=== PATIENT | male | born 1975 | race Caucasian/White ===

== ENCOUNTER 2019-04-02 10:03 | Emergency (ER) | payer OTHER, SELFPAY ==
[2019-04-02 10:28] VITALS: BP 125/64; PULSE 68; RESP 20; TEMP 37.2; O2SAT 100
--- NOTE | 2019-04-02 10:46 | ED.GENADULT ---
HPI - General Adult General Chief complaint: Upper Respiratory Infection Stated complaint: SORE THROAT/DRAINAGE Time Seen by Provider: 04/02/19 10:46 Source: patient and RN notes reviewed Mode of arrival: ambulatory Limitations: no limitations History of Present Illness HPI narrative: 43-year-old male presents with complaints of upper respiratory symptoms and sore throat for 1 day. Allergra and Mucinex without relief. History of Sinusitis. Intermittent dry cough. No chest congestion. No high fevers, drooling, neck or throat swelling. Pain is bilateral. Hurts to swallow. No rhinorrhea. Nasal congestion. No voice change. No nausea, vomiting, or abdominal pain. Tolerating liquids well. Denies chills, dyspnea, difficulty swallowing, jaw pain, dental pain, facial pain, foreign body sensation, and rash. Remains active. Some parts of this dictation were generated by voice recognition software and may contain typographical and/or grammatical inaccuracies. Related Data Allergies Allergy/AdvReac Type Severity Reaction Status Date / Time bee venom protein (honey bee) Allergy Unknown Swelling Verified 04/02/19 10:30 of Lip/Tongue/Throat Review of Systems Review of Systems: Narrative: CONSTITUTIONAL: Denies fever, chills, sweats. EYES: Denies visual changes, redness, discharge. ENT: Denies rhinorrhea, otalgia. Complains of sore throat, congestion. CARDIOVASCULAR: Denies chest pain, palpitations, edema. RESPIRATORY: Denies dyspnea, wheezing. Complains of intermittent dry cough. GASTROINTESTINAL: Denies abdominal pain, nausea, vomiting, diarrhea. GENITOURINARY: Denies dysuria, hematuria, abnormal discharge SKIN: Denies rash or itching. MUSCULOSKELETAL: Denies acute back pain, joint pain, or myalgia. NEUROLOGIC: Denies numbness or focal weakness. PSYCHIATRIC: Denies anxiety or depression PMF Past Medical History Medical History (Updated 04/06/19 @ 17:16 by KAMILAH Barrios) Chronic back pain Surgical History Surgical History (Updated 04/06/19 @ 17:18 by KAMILAH Barrios) History of spinal surgery C4-C7 fusion Social History Social History Smoking status: Never smoker Second hand tobacco smoke exposure: No Smoking end date: 03/05/16 Alcohol intake: current Comments At time of signature, agree with nurse past medical, surgical, social, and family history. There is no relevant family history pertinent to the presenting complaint. Exam Narrative: Exam Narrative: GENERAL: This is a well-nourished, well-developed patient, in no apparent distress. Speaks in full sentences without deficits and ambulates with steady gait without dyspnea. HEAD: normocephalic, atraumatic. EYES: PERRL. Sclera clear/white. Vision is grossly intact. EARS: External ears normal, auditory canals clear and without drainage, TMs normal without perforation. Hearing grossly intact. NOSE: External nose normal with no obvious nasal discharge, nares with moderate redness and enlarge turbinates, clear rhinorrhea. Mouth: moist mucous membranes. THROAT: Mucous membranes moist, posterior pharynx with PND, mild erythema, and no exudate to tonsil, Right tonsil stone, removed during assessment per this provider, otherwise normal tonsils, no drainage, no concern for Peritonsillar abscess. No drooling, trismus, or neck swelling. NECK: Neck supple, non-tender without lymphadenopathy, masses or thyromegaly. CARDIOVASCULAR: Regular rate and rhythm without murmurs, gallops, or rubs. RESPIRATORY: Clear to auscultation. Breath sounds equal bilaterally. No wheezes, rales, or rhonchi. GASTROINTESTINAL: Abdomen soft, non-tender, nondistended. Bowel sounds are active. No hepato-splenomegaly, or palpable masses. No guarding. SKIN: warm, intact with no suspicious lesions or rash, good texture and turgor. NEURO: awake, alert, and oriented to person, place and time. There were no o
== END 2019-04-02 11:01 | disposition home or self-care (01) ==
PROVIDERS: Emergency Provider Nurse Practitioner Family
DX: J02.9 Acute pharyngitis, unspecified (principal); J35.8 Other chronic diseases of tonsils and adenoids
CPT/HCPCS: 87081; 87880; 99213; G0463

== ENCOUNTER 2019-09-12 10:42 | Outpatient (CLI) | payer OTHER, SELFPAY ==
--- NOTE | ~2019-09-12 | XR_ITS ---
XR_CERV2-3V_CR DATE: 09/12/2019 11:13 INDICATION: TECHNIQUE: AP, lateral, open mouth views COMPARISON: 03.22.2019 cervical spine FINDINGS: There is straightening of the cervical spine. C1 and C2 are normally aligned and the odont oid process is intact. There is moderate loss of interspace height at C3-4. Status post anterior and interbody spinal fusion at C4-7. IMPRESSION: Status post anterior and interbody spinal fusion Moderate C3-4 degenerative disc disease Reviewed, dictated and finalized at [facility]. Reviewed, dictated and finalized at location [facility].
== END 2019-09-12 10:43 | disposition home or self-care (01) ==
PROVIDERS: Visit Provider Neurological Surgery
DX: Z98.1 Arthrodesis status (principal); M50.31 Other cervical disc degeneration, high cervical region
CPT/HCPCS: 72040

== ENCOUNTER 2019-09-23 13:00 | Outpatient (CLI) | payer OTHER, SELFPAY ==
--- NOTE | ~2019-09-23 | CT_ITS ---
EXAMINATION: CT shoulder LT wo con DATE: 09/23/2019 14:30 INDICATION: Left shoulder pain. TECHNIQUE: Computed tomography (CT) of the left shoulder was performed without intravenous contrast. Automated exposure control and iterative reconstruction technique were employed. The dose-length prod uct was 570.54 mGy-cm. COMPARISON: None FINDINGS: Bone alignment is normal. No fracture. There are changes of anterior fusion procedure in ce rvical spine. The acromion undersurface is flat in morphology (type I). There is mild osteoarthritis of glenohumeral joint and moderate osteoarthritis of acromioclavicular joint. There is no asymmetric fatty atrophy of the rotator cuff muscle bellies. IMPRESSION: 1. Polyarticular osteoarthritis. Reviewed, dictated and finalized at location A.
--- NOTE | ~2019-09-23 | CT_ITS ---
EXAMINATION: CT shoulder RT wo con DATE: 09/23/2019 14:31 INDICATION: Right shoulder pain. TECHNIQUE: Computed tomography (CT) of the right shoulder was performed without intravenous contrast. Automated exposure control and iterative reconstruction technique were employed. The dose-length pro duct was 570.54 mGy-cm. COMPARISON: None FINDINGS: Bone alignment is normal. No fracture. There are changes of anterior fusion procedure in ce rvical spine. The acromion undersurface is flat in morphology (type I). There is mild osteoarthritis of glenohumeral joint and moderate osteoarthritis of acromioclavicular joint. There is no asymmetric fatty atrophy of the rotator cuff muscle bellies. IMPRESSION: 1. Polyarticular osteoarthritis. Reviewed, dictated and finalized at location A.
== END 2019-09-23 13:01 | disposition home or self-care (01) ==
PROVIDERS: PCP Nurse Practitioner Adult Health; Visit Provider Nurse Practitioner Adult Health
DX: M25.519 Pain in unspecified shoulder (principal); M19.012 Primary osteoarthritis, left shoulder; M19.011 Primary osteoarthritis, right shoulder
CPT/HCPCS: 73200

== ENCOUNTER → 2019-11-03 14:06 | Outpatient (CLI) | payer OTHER, SELFPAY ==
--- NOTE | ~2019-11-03 | MR_ITS ---
EXAMINATION: MR shoulder RT wo con DATE: 11/03/2019 14:44 INDICATION: Right shoulder pain TECHNIQUE: Magnetic resonance imaging (MRI) of the right shoulder was performed without intravenous c ontrast. Sequences included axial PD-weighted FS FSE, coronal oblique PD-weighted FS FSE, coronal obl ique T2-weighted FS FSE, sagittal PD-weighted FS FSE, and sagittal T1-weighted SE. COMPARISON: None. FINDINGS: Coracoacromial arch: The acromion undersurface is flat in morphology (type I). The coracoacromial ligament is normal. Mild to moderate acromioclavicular osteoarthritis with mild subarticular cystic change at the lateral hea d of the clavicle.. Rotator cuff: Mild supraspinatus and infraspinatus tendinopathy without discrete tear. The subscapularis and teres minor tendons are normal. Normal rotator cuff muscle bulk and signal. Biceps tendon, glenoid labrum and glenohumeral cartilage: Long head of the biceps tendon is normal. Normal thin medially curving subtle labral sulcus at the tang perior glenoid. There is a curvilinear band of artifactual increased signal passing across portions o f the distal supraspinatus muscle and substance of the superior glenoid labrum. No definitive labral tear. Glenohumeral cartilage is normal. Fluid: Physiologic amount of fluid in the glenohumeral joint and biceps tendon sheath. No loose osteochondra l bodies. No abnormally increased fluid signal in the subacromial/subdeltoid bursa to suggest bursiti s. Bones: Normal marrow signal with no edema, fracture or abnormal marrow replacing process. Tiny marginal oste ophytes along the posterior glenoid consistent with minimal osteoarthritis. IMPRESSION: 1. Mild supraspinatus and infraspinatus tendinopathy without discrete tear. 2. Mild to moderate acromioclavicular and minimal glenohumeral osteoarthritis. Reviewed, dictated and finalized at location B.
== END ==
PROVIDERS: Visit Provider Orthopaedic Surgery
DX: M19.011 Primary osteoarthritis, right shoulder (principal)
CPT/HCPCS: 73221

== ENCOUNTER 2019-12-15 13:47 | Emergency (ER) | payer OTHER, SELFPAY ==
[2019-12-15 14:00] VITALS: BP 144/94; PULSE 68; RESP 18; TEMP 35.9; O2SAT 97
--- NOTE | 2019-12-15 15:19 | ED.EAR ---
HPI - Ear Problem General Chief complaint: Ear Stated complaint: ear pain Source: patient and RN notes reviewed Limitations: no limitations History of Present Illness HPI Narrative: The patient, previously healthy non-smoker/ occ drinker, presents with right ear discomfort. Patient states he has a couple day worsening of nearly couple week history of right ear discomfort. No fever, URI?sinusitis, toothache, vertigo, discharge, tinnitus, hearing loss; symptoms are mild, unrelieved with OTC preparations like peroxide. Discussed possible causes [TMJ syndrome/bruxism, toothache, sinusitis/mastoiditis, infections external/internal, etc.] and will treat broadly and advised to follow-up local ENT if not improved Related Data Allergies Allergy/AdvReac Type Severity Reaction Status Date / Time bee venom protein (honey bee) Allergy Unknown Swelling Verified 04/02/19 10:30 of Lip/Tongue/Throat Review of Systems Review of Systems: Narrative: General/Constitutional: No weight loss,fever Eyes: N0: Redness,discharge Ears/Nose/Throat: No: Epistaxis,ear discharge Respiratory: Denies: Hemoptysis Gastrointestinal: No Vomiting, Bleeding-rectal Skin: No Lumps, eruption Neurologic: No Focal Weakness,Sz Hematologic: Denies: Petechiae/Purpura Psychiatric: No: Suicida ideationl All Other Systems: Reviewed and Negative [facility] Past Medical History Medical History (Updated 12/15/19 @ 14:25 by Thierno Uribe MD) Chronic back pain Surgical History Surgical History (Updated 04/06/19 @ 17:18 by KAMILAH Barrios) History of spinal surgery C4-C7 fusion Social History Social History Smoking status: Never smoker Second hand tobacco smoke exposure: No Smoking end date: 03/05/16 Alcohol intake: current Comments At time of signature, agree with nursing past medical, surgical, social and family history. There is no relevant family history pertinent to the presenting complaint Exam Narrative: Exam Narrative: General Appearance: Well appearing, Conjunctiva clear Ears: External ear normal, TM nl , sl irritation of the right EAC Nose: Normal nose Mouth/Throat: Normal appearing, Normal lips Supple Respiratory: Airway patent, No respiratory distress Musculoskeletal: Full ROM Skin: Warm, Dry Neurological: A&O x3, Normal affect Course Vital Signs Vital signs: Vital Signs Temperature 96.6 F L 12/15/19 14:00 Pulse Rate 68 12/15/19 14:00 Respiratory Rate 18 12/15/19 14:00 Blood Pressure 144/94 H 12/15/19 14:00 Pulse Oximetry 97 12/15/19 14:00 Temperature 96.6 F L 12/15/19 14:00 Pulse Rate 68 12/15/19 14:00 Respiratory Rate 18 12/15/19 14:00 Blood Pressure 144/94 H 12/15/19 14:00 Pulse Oximetry 97 12/15/19 14:00 Medical Decision Making Vital Signs Vital Signs: Vital Signs Temperature 96.6 F L 12/15/19 14:00 Pulse Rate 68 12/15/19 14:00 Respiratory Rate 18 12/15/19 14:00 Blood Pressure 144/94 H 12/15/19 14:00 Pulse Oximetry 97 12/15/19 14:00 Temperature 96.6 F L 12/15/19 14:00 Pulse Rate 68 12/15/19 14:00 Respiratory Rate 18 12/15/19 14:00 Blood Pressure 144/94 H 12/15/19 14:00 Pulse Oximetry 97 12/15/19 14:00 Discharge Plan Discharge Clinical Impression: Otalgia, right ear Patient Disposition: Home, Self-Care Condition: Stable Instructions: Antibiotic Form, Earache (ED) Prescriptions: New azithromycin 250 mg tablet See Rx Instructions .ROUTE .COMPLEX Qty: 6 RF: 0 tramadol 50 mg tablet 50 mg PO Q6H PRN (Reason: pain) Qty: 15 RF: 1 rcwvpbid-noscrmvlz-TT 3.5-10,000-1 mg/mL-unit/mL-% drops,suspension 4 drp RIGHTEAR Q6H 10 Days Qty: 10 RF: 0 No Action fluticasone propionate [Allergy Relief (fluticasone)] 50 mcg/actuation spray,suspension 1 spray NASAL DAILY Qty: 18.2 RF: 0 Follow-up/Referrals: PHYSICIAN,SECONDS GRADER [Primary Car
== END 2019-12-15 14:29 | disposition home or self-care (01) ==
PROVIDERS: Emergency Provider Emergency Medicine
DX: H92.01 Otalgia, right ear (principal)
CPT/HCPCS: 99213; G0463

== ENCOUNTER 2020-10-11 12:33 | Outpatient (CLI) | payer OTHER, SELFPAY ==
--- NOTE | ~2020-10-11 | XR_ITS ---
XR_CERV2-3V_CR DATE: 10/11/2020 13:08 INDICATION: Cervical spine fusion TECHNIQUE: AP, open-mouth, lateral views COMPARISON: 09/12/2019 cervical spine FINDINGS: There is anterior and interbody spinal fusion at C4-C7. Normal alignment of the lumbar spin e. C1 and C2 are normally aligned and the odontoid process is intact. No fracture or dislocation. There is moderate degenerative disc disease at C3-4. IMPRESSION: Status post anterior and interbody spinal fusion at C4-C7 Moderate degenerative disc disease at C3-4 Reviewed, dictated and finalized at [facility]. Reviewed, dictated and finalized at location A.
[2020-10-11 12:58] LABS: Hematocrit 42.7 % (40.0-54.0); Hemoglobin 14.4 g/dL (14.0-18.0); Mean Corpuscular HGB Conc 33.7 g/dL (32.0-36.0); Mean Corpuscular Hemoglobin 30.4 pg (27.0-31.0); Mean Corpuscular Volume 90.1 fL (78.0-102.0); Mean Platelet Volume 10.4 fl (8.7-11.0); Platelet Count Result 188 K/mm3 (150-420); Red Blood Count 4.74 M/mm3 (4.70-6.10); Red Cell Distribution Width 12.1 % (11.6-14.4); White Blood Count 3.7 K/mm3 (4.8-10.8)
[2020-10-11 14:02] LABS: Alanine Aminotransferase 34 U/L (16-63); Albumin Level 4.4 g/dL (3.4-5.0); Alkaline Phosphatase 68 U/L (46-116); Anion Gap 11 mmol/L (8-16); Aspartate Amino Transferase 14 U/L (15-37); Bilirubin,Total 1.5 mg/dL (0.00-1.00); Blood Urea Nitrogen 14 mg/dL (7-18); Calcium 8.9 mg/dL (8.5-10.1); Carbon Dioxide 27 mmol/L (21-32); Chloride 106 mmol/L (98-108); Cholesterol 163 mg/dL (0-200); Estimated Glomerular Filt Rate > 60; Folic Acid 6.9 ng/mL (8.6->20); Glucose 103 mg/dL (70-99); HDL Direct 45 mg/dL (40-60); LDL Cholesterol Calculated 109 mg/dL (<130); Osmolality Calculated 298 mOsm/kg (285-295); Potassium 4.2 mmol/L (3.5-5.1); Sodium 144 mmol/L (136-145); Total Protein 7.3 g/dL (6.4-8.2); Triglycerides 46 mg/dL (0-150); Vitamin B12 643 pg/mL (193-986)
[2020-10-11 16:11] LABS: Thyroid Stimulating Hormone Reflex 1.74 u/IU/mL (0.36-3.74)
[2020-10-13 20:24] LABS: Vitamin D 25 Hydroxy 64 ng/mL (30-100)
[2020-10-14 13:36] LABS: Vitamin B1 <6 nmol/L (8-30)
[2020-10-18 04:01] LABS: Vitamin B6 5.8 ng/mL (2.1-21.7)
== END 2020-10-11 12:34 | disposition home or self-care (01) ==
PROVIDERS: PCP Family Medicine; Visit Provider Neurological Surgery
DX: R53.83 Other fatigue (principal); E55.9 Vitamin D deficiency, unspecified; E11.9 Type 2 diabetes mellitus without complications; G54.2 Cervical root disorders, not elsewhere classified; Z12.11 Encounter for screening for malignant neoplasm of colon; Z98.1 Arthrodesis status; Z12.2 Encounter for screening for malignant neoplasm of respiratory organs; Z00.00 Encounter for general adult medical examination without abnormal findings
CPT/HCPCS: 36415; 72040; 80053; 80061; 82306; 82607; 82746; 84207; 84425; 84443; 85027

== ENCOUNTER → 2021-05-10 13:39 | Outpatient (CLI) | payer OTHER, SELFPAY ==
--- NOTE | ~2021-05-10 | MR_ITS ---
EXAMINATION: MR shoulder LT wo con DATE: 05/10/2021 14:31 INDICATION: Left shoulder pain and weakness TECHNIQUE: Magnetic resonance imaging (MRI) of the left shoulder was performed without intravenous co ntrast. Sequences included axial PD-weighted FS FSE, coronal oblique PD-weighted FS FSE, coronal obli que T2-weighted FS FSE, sagittal PD-weighted FS FSE, and sagittal T1-weighted SE. COMPARISON: None. FINDINGS: Coracoacromial arch: The acromion undersurface is minimally curved in morphology (type I-II). The coracoacromial ligament is normal. Mild to moderate acromioclavicular osteoarthritis. Rotator cuff: Mild infraspinatus tendinopathy with tiny intrasubstance tear along the middle facet footplate eviden t on only a single coronal image, series 5 & 6, image 11 and obliquely profiled with volume averaging on the sagittal and axial images. The supraspinatus, teres minor tendons are normal. Mild subscapula ris tendinopathy without discrete tear. Normal rotator cuff muscle bulk and signal. Biceps tendon, glenoid labrum and glenohumeral cartilage: Long head of the biceps tendon is normal. There is a superior, anterior to posterior tear of the luis oid labrum (SLAP tear) which begins at the 12:00 position superiorly and extends to the 8:00 position of the posterior glenoid. Mild partial-thickness cartilage loss with smooth chondral surface at the anterosuperior glenoid and inferomedial aspect of the humeral head. Fluid: Physiologic amount of fluid in the glenohumeral joint and biceps tendon sheath. No loose osteochondr al bodies. No abnormal fluid signal in the subacromial/subdeltoid bursa to suggest bursitis. Bones: Normal marrow signal with no edema, fracture or pathologic marrow replacing process. IMPRESSION: 1. Mild glenohumeral osteoarthritis with SLAP tear of the superior to posterior glenoid labrum. 2. Mild subscapularis and infraspinatus tendinopathy with tiny partial-thickness intrasubstance tear at the middle facet footplate of the infraspinatus tendon. 3. Mild to moderate acromioclavicular osteoarthritis. Reviewed, dictated and finalized at location A. [employer] IMPRESSION: 1. Mild glenohumeral osteoarthritis with SLAP tear of the superior to posterior glenoid labrum. 2. Mild subscapularis and infraspinatus tendinopathy with tiny partial-thicknes s intrasubstance tear at the middle facet footplate of the infraspinatus tendon . 3. Mild to moderate acromioclavicular osteoarthritis.
== END ==
PROVIDERS: Visit Provider Orthopaedic Surgery
DX: M25.512 Pain in left shoulder (principal); M19.012 Primary osteoarthritis, left shoulder; S43.432A Superior glenoid labrum lesion of left shoulder, initial encounter; S46.012A Strain of muscle(s) and tendon(s) of the rotator cuff of left shoulder, initial encounter
CPT/HCPCS: 73221

== ENCOUNTER 2021-05-30 10:49 | Outpatient (RCR) | payer OTHER, SELFPAY ==
--- NOTE | 2021-05-30 12:02 | PTOPEVAL ---
Thank you for referring Homar Clark to [facility][Note 3].? The patient is scheduled to be seen for therapy? ____x/week for ___ weeks. Please review, sign, date and return this plan of care FIDEL. I agree with and certify that the following plan of care is medically necessary. Referring Physician Date Admitting Provider: Attending Provider: Gilberto Carrillo MD Referring Provider: *PT Outpatient Evaluation Start: 05/30/21 11:07 Freq: Status: Active Protocol: Document 05/30/21 11:08 YUKI (Rec: 05/30/21 12:01 [email or web address] [email or web address]) Therapy Assessment Status Assessment Status Assessment Status Evaluation Outpatient Past Medical History Musculoskeletal History Hx Spinal Surgery Yes: C4-C7 fusion Evaluation Information Problem Diagnosis L shoulder pain, impingement syndrome Onset 05/19/21 Additional Evaluation Detail quick dash = 43% functionally declined Subjective Information patient reports he is having Query Text:As Reported By Patient/ issues in the L shoulder. 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 he reports he had a 4 level fusion in the cervical spine, but reports this did not stop the NTB in the L arm. he reports he feels the NTB has been worse lately. patient brings MRI with him that show results of SLAP tear, mild tendonitis, and mild AC arthritis of the L shoulder. he reports reaching out and up above his head or down and away from his body with cause increased pain/burning the L shoulder. he reports reaching out to pick something up is weaknes, but stilla ble to carry logs close to his body. Prior Level of Function Comments Additional Prior Level of Function patient reports he has been Comments having issues in the L shoulder for about 3 months. he reports he was moving some things (plywood) overhead. he reports since then it has been getting progerssively worse. Pain Assessment Timing of Pain Assessment Timing of Pain Assessment
--- NOTE | 2021-06-29 10:10 | PTOPEVAL ---
Thank you for referring Homar Clark to [facility].? The patient is scheduled to be seen for therapy? __1__x/week for 3 visits. Please review, sign, date and return this plan of care FIDEL. I agree with and certify that the following plan of care is medically necessary. Referring Physician Date Admitting Provider: Attending Provider: Gilberto Carrillo MD Referring Provider: *PT Outpatient Evaluation Start: 05/30/21 11:07 Freq: Status: Active Protocol: Document 06/23/21 11:00 NOHEMI (Rec: 06/28/21 18:19 [email or web address]) Therapy Assessment Status Assessment Status Assessment Status Progress Outpatient Past Medical History Musculoskeletal History Hx Spinal Surgery Yes: C4-C7 fusion Evaluation Information Problem Diagnosis left shoulder pain, impingement syndrome Onset 05/19/21 Subjective Information Pt. reports noticing Query Text:As Reported By Patient/ improvments in mobility. He Family reports that pain is less intense, but still notices pain at described end range flexion and IR. 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 He reports that he is happy with his progress, but would like to improve described IR mobility at the left shoulder and improve strength with overhead activities. Pain Assessment Pain Scale Pain Scale Used Numeric (1 - 10) Self Report Pain Assessment Left Shoulder(s) Reported Pain Level 2 Lowest Pain Intensity 0 Greatest Pain Intensity 2 Pain Score Pain Score 2: Self Report Interventions Used Interventions Used By Clinicians Electrical Stimulation, Exercise,Heat,Manual Therapy Techniques Upper Extremity Range of Motion General Upper Extremity Range of Motion Gross Upper Extremity Range of Motion -AROM left shoulder flexion Comments 155 degrees -AROM left shoulder ER 78 degrees -AROM left shoulder IR 47 degrees Upper Extremity Muscle Strength Testing General Upper Extremity Strength Gross Upper Extremity Strength Comments -left shoulder flexion 4+/5
--- NOTE | 2021-07-13 13:28 | PTOPEVAL ---
Thank you for referring Homar Clark to [facility].? The patient is scheduled to be seen for therapy? ____x/week for ___ weeks. Please review, sign, date and return this plan of care FIDEL. I agree with and certify that the following plan of care is medically necessary. Referring Physician Date Admitting Provider: Attending Provider: Gilberto Carrillo MD Referring Provider: *PT Outpatient Evaluation Start: 05/30/21 11:07 Freq: Status: Active Protocol: Document 07/13/21 11:15 [facility] (Rec: 07/13/21 12:23 [facility] [email or web address]) Therapy Assessment Status Assessment Status Assessment Status Discharge Outpatient Past Medical History Musculoskeletal History Hx Spinal Surgery Yes: C4-C7 fusion Evaluation Information Problem Diagnosis L shoulder pain, impingement syndrome Onset 05/19/21 Additional Evaluation Detail QuickDash = 9% Functionally Declined Subjective Information Homar reports that he has Query Text:As Reported By Patient/ been feeling much better. He Family has been cutting down trees in his yard and that he feels stronger. He is happy with the results of therapy and believes the therapists in therapy help stretch his shoulder out better than he is able to on his own. He says he stretches on his own and will continue to do so after this visit. Pain Assessment Timing of Pain Assessment Timing of Pain Assessment Pre-Treatment Self Report Self Report Pain Level 0 Pain Score Pain Score 0: Self Report Upper Extremity Range of Motion General Upper Extremity Range of Motion Gross Upper Extremity Range of Motion AROM L Sh Comments Flexion = 155 degrees IR = 35 degrees ER = 80 degrees Upper Extremity Muscle Strength Testing General Upper Extremity Strength Gross Upper Extremity Strength Comments L Sh MMT -Flexion = 5/5 -Abd = 4+/5 -ER = 4+/5 General Exercise General Exercises Exercise Description Therex Query Text:Record Sets, Reps, -PROM shoulder all direction x Resistance, and Position 10 min -re-evaluation 5 minutes Manual Therapy Manual Therapy Treatment Comments Kiley macedo to the Query Text:Include Technique and anterior left shoulder at the Result of Technique bicipit
== END 2021-07-13 14:35 | disposition home or self-care (01) ==
LOC: CHSPT 10:49
PROVIDERS: Visit Provider Orthopaedic Surgery
DX: M75.42 Impingement syndrome of left shoulder (principal)
CPT/HCPCS: 97014; 97110; 97140; 97161; G0283

== ENCOUNTER 2021-08-18 10:59 | Outpatient (CLI) | payer OTHER, SELFPAY ==
--- NOTE | ~2021-08-18 | XR_ITS ---
XR abdomen/kub 1V 08/18/2021 11:13 Indication: Left flank pain Procedure: KUB Comparison: No prior studies for comparison. Findings: The kidneys are not completely visualized. There are stones in the lower pole of the left k idney. There are pelvic phleboliths no acute osseous abnormality. Impression: 1: Left nephrolithiasis. Reviewed, dictated and finalized at location A. Impression: 1: Left nephrolithiasis.
== END 2021-08-18 11:00 | disposition home or self-care (01) ==
LOC: CHSIMG 11:02
PROVIDERS: PCP Family Medicine; Visit Provider Nurse Practitioner Family
DX: N23 Unspecified renal colic (principal); R31.9 Hematuria, unspecified
CPT/HCPCS: 74018

== ENCOUNTER 2022-02-20 09:07 | Outpatient (CLI) | payer OTHER, SELFPAY ==
[2022-02-20 09:40] LABS: SARS-CoV-2 Ag Positive (Negative)
[2022-02-20 09:41] LABS: Influenza Control Valid (Valid)
[2022-02-20 09:43] LABS: Strep Group A RT-PCR NOT DETECTED (Negative)
== END 2022-02-20 09:08 | disposition home or self-care (01) ==
LOC: CHSLAB 09:10
PROVIDERS: PCP Nurse Practitioner Family; Visit Provider Nurse Practitioner Family
DX: U07.1 COVID-19 (principal)
CPT/HCPCS: 87426; 87651; 87804; C9803

== ENCOUNTER 2023-06-17 09:47 | Emergency (ER) | payer OTHER, SELFPAY ==
[2023-06-17] VITALS (7 sets, daily range): BP systolic 120–140; BP diastolic 73–87; PULSE 62–96; RESP 17–19; TEMP 36.3–37.1; O2SAT 95–98
--- NOTE | ~2023-06-17 | CT_ITS ---
EXAMINATION: CT abdomen pelvis w con DATE: 06/17/2023 11:29 INDICATION: Right flank pain and nausea TECHNIQUE: Computed tomography (CT) of the abdomen and pelvis was performed with 100 mL Omnipaque-350 intravenous contrast. Automated exposure control and iterative reconstruction technique were employe d. The dose-length product was 642.89 mGy-cm. COMPARISON: None FINDINGS: Minimal atelectasis at the left lung base. Heart size is normal. No pericardial or pleural effusion. Small sliding-type hiatal hernia. Liver, gallbladder, spleen, pancreas and bilateral adrenal glands a re normal. Bilateral nephrolithiasis with a couple 3 mm nonobstructing stones at upper and lower pole calyces of the left kidney. There is therefore stones measuring up to 3 mm in the calyces of the rig ht kidney. In addition there is a 3 mm stone in the region of the right ureterovesicular junction wit h mild right hydronephrosis and mildly delayed right nephrogram. There is also a small amount of nonl oculated retroperitoneal fluid extending in the fat between the right kidney and proximal right urete r and the duodenum and inferior vena cava. The decompressed bladder is otherwise unremarkable. There are few scattered diverticula along the descending and sigmoid colon without adjacent inflammatory st randing to suggest diverticulitis. Small bowel and appendix are normal. No free intraperitoneal gas o r fluid. No pathologically enlarged abdominal or pelvic lymphadenopathy. 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 Moderate to severe mid to lower lumbar facet osteoarthritis . IMPRESSION: 1. Bilateral nephrolithiasis with obstructing 3 mm stone at the right ureterovesicular junction with mild right hydronephrosis. 2. Small sliding-type hiatal hernia. Reviewed, dictated and finalized at location A. IMPRESSION: 1. Bilateral nephrolithiasis with obstructing 3 mm stone at the right ureterove sicular junction with mild right hydronephrosis. 2. Small sliding-type hiatal hernia.
--- NOTE | 2023-06-17 09:53 | ED.ABDPAIN ---
HPI - Abdominal Pain General Chief Complaint: Urogenital-Male Stated Complaint: Kidney Stone Time Seen by Provider: 06/17/23 09:50 Source: patient and family Mode of arrival: ambulatory History of Present Illness HPI narrative: 48 years male came to the emergency room by private car complaining of right flank pain , like muscle cramps, radiating to right testicle started early this morning associated with nausea, vomiting once, diaphoresis, restlessness, pacing the floor. He denies any history of kidney stone. patient is healthy otherwise. he denies any fever, chills, abdominal pain or having similar symptoms. No history of abdominal surgery Related Data Allergies Allergy/AdvReac Type Severity Reaction Status Date / Time bee venom protein (honey bee) Allergy Severe Swelling Verified 06/17/23 11:57 of Lip/Tongue/Throat Review of Systems Review of Systems: All systems reviewed & are unremarkable except as noted in HPI and below PMFSH Past Medical History Medical History Chronic back pain Surgical History Surgical History History of spinal surgery C4-C7 fusion Social History Social History Smoking status: Never smoker Alcohol intake: current Exam Narrative: General appearance: Well-developed, well-nourished, restlessness, pain, pacing the floor Skin: Normal color Head: Normocephalic, nontraumatic Eyes: Clear conjunctiva ENT: Oropharynx normal, ears normal, nose normal Neck: Supple, nontender Chest and respiratory: Airway patent, no respiratory distress, no accessory muscle use Heart: Regular rate/rhythm Abdomen: Soft, nontender, no organomegaly, quiet bowel sounds Vascular: Normal peripheral pulses, normal capillary refill. 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 is normal as tested, no gross motor deficit Course Vital Signs Vital signs: Vital Signs Temperature 36.3 C L 06/17/23 09:50 Pulse Rate 68 06/17/23 09:50 Respiratory Rate 19 06/17/23 09:50 Blood Pressure 121/82 06/17/23 09:50 Pulse Oximetry 95 06/17/23 09:50 Oxygen Delivery Room Air 06/17/23 09:50 Temperature 36.3 C L 06/17/23 09:50 Pulse Rate 65 06/17/23 11:05 Respiratory Rate 17 06/17/23 11:05 Blood Pressure 140/73 06/17/23 11:05 Pulse Oximetry 98 06/17/23 11:05 Oxygen Delivery Room Air 06/17/23 10:26 MDM - Abdominal Pain MDM Narrative Medical decision making narrative: differential diagnosis include Kidney stone, urinary tract infection, cholecystitis, constipation, colitis Blood workup today showed no significant abnormalities Lab Data 06/17/23 10:40 06/17/23 10:40 Labs: Lab Results 06/17/23 Range/Units 10:40 WBC 4.5 L (4.8-10.8) K/mm3 RBC 4.34 L (4.70-6.10) M/mm3 Hgb 13.0 L (14.0-18.0) g/dL Hct 39.1 L (40.0-54.0) % MCV 90.1 (78.0-102.0) fL MCH 30.0 (27.0-31.0) pg MCHC 33.2 (32-36) g/dL RDW 11.9 (11.6-14.4) % Plt Count 150 (150-420) K/mm3 MPV 10.5 (8.7-11.0) fl Immature Gran % (Auto) 0.2 H (0.0-0.0) % Neut % (Auto) 71.5 H (50.0-70.0) % Lymph % (Auto) 19.6 (18.0-42.0) % [place] % (Auto) 6.0 (2.0-11.0) % Eos % (Auto) 2.0 (1.0-6.0) % Baso % (Auto) 0.7 (0.0-1.0) % Lymph # (Auto) 0.88 L (1.10-4.50) K/mm3 [place] # (Auto) 0.27 (0.10-0.90) K/mm3 Eos # (Auto) 0.09 (0.02-0.50) K/mm3 Baso # (Auto) 0.03 (0.00-0.10) K/mm3 Abs Immat Gran (auto) 0.01 H (0.00-0.00) K/mm3 Absolute Neuts (auto) 3.20
[2023-06-17] MEDS: ONDANSETRON INJ 4 MG/2 ML VIAL IV PUSH (10:04)
[2023-06-17] MEDS: SODIUM CHLORIDE 0.9% IV 1,000 ML 999 ML IV CONT (10:06)
[2023-06-17] MEDS: HYDROmorphone HCL INJ (*CRX) 2 MG/ML VIAL 0.5 MG IV PUSH (10:06)
[2023-06-17 10:46] LABS: Basophils Absolute Auto 0.03 K/mm3 (0.00-0.10); Basophils Percent Auto 0.7 % (0.0-1.0); Eosinophils Absolute Auto 0.09 K/mm3 (0.02-0.50); Hematocrit 39.1 % (40.0-54.0); Immature Granulocyte Absolute 0.01 K/mm3 (0.00-0.00); Immature Granulocyte Percent A 0.2 % (0.0-0.0); Lymphocytes Absolute Auto 0.88 K/mm3 (1.10-4.50); Lymphocytes Percent Auto 19.6 % (18.0-42.0); Mean Corpuscular HGB Conc 33.2 g/dL (32-36); Mean Corpuscular Volume 90.1 fL (78.0-102.0); Mean Platelet Volume 10.5 fl (8.7-11.0); Monocytes Absolute Auto 0.27 K/mm3 (0.10-0.90); Neutrophils Percent Auto 71.5 % (50.0-70.0); Platelet Count Result 150 K/mm3 (150-420); Red Blood Count 4.34 M/mm3 (4.70-6.10); Red Cell Distribution Width 11.9 % (11.6-14.4); White Blood Count 4.5 K/mm3 (4.8-10.8)
[2023-06-17 11:05] LABS: Alanine Aminotransferase 32 U/L (16-63); Albumin Level 3.7 g/dL (3.4-5.0); Alkaline Phosphatase 58 U/L (46-116); Anion Gap 11 mmol/L (4-12); Aspartate Amino Transferase 19 U/L (15-37); Bilirubin,Total 1.2 mg/dL (0.00-1.00); Blood Urea Nitrogen 17 mg/dL (7-18); Calcium 8.4 mg/dL (8.5-10.1); Carbon Dioxide 25 mmol/L (21-32); Chloride 108 mmol/L (98-108); Estimated CRCL calculation 88 ml/min; Estimated Glomerular Filt Rate > 60; Glucose 105 mg/dL (70-99); Lipase 33 U/L (16-77); Osmolality Calculated 299 mOsm/kg (285-295); Potassium 4.1 mmol/L (3.5-5.1); Sodium 144 mmol/L (136-145); Total Protein 6.6 g/dL (6.4-8.2)
[2023-06-17 11:24] LABS: Appearance Urine Clear (Clear); Bilirubin Urine Negative (Negative); Blood Urine 2+ (Negative); Color Urine Yellow (Yellow); Glucose Urine UA Negative (Negative); Ketones Urine 2+ (Negative); Leukocyte Esterase Ur Negative LEU/UL (Negative); Nitrate Urine Negative (Negative); Protein Urine Negative (Negative); Specific Grav Ur 1.025 (1.010-1.020); Urobilinogen Urine 0.2 mg/dL (0.2-1.0)
[2023-06-17 11:35] LABS: Add Urine Microscopic? YES; Amorphous Sediment Urine Few; Mucus Urine Moderate /lpf
[2023-06-17] MEDS: KETOROLAC 30 MG/ML VIAL (*BKC) IV PUSH (12:02)
[2023-06-17] MEDS: TAMSULOSIN HCL 0.4 MG CAPSULE PO (12:02)
== END 2023-06-17 12:57 | disposition home or self-care (01) ==
PROVIDERS: Emergency Provider Emergency Medicine; PCP Family Medicine
DX: N20.0 Calculus of kidney (principal)
CPT/HCPCS: 36415; 74177; 80053; 81001; 83690; 85025; 96361; 96374; 96375; 99284; A9270; J1170; J1885; J2405; J7030; Q9967

== ENCOUNTER 2023-06-21 13:08 | Outpatient (CLI) | payer OTHER, SELFPAY ==
--- NOTE | ~2023-06-21 | US_ITS ---
EXAMINATION: US soft tissue UE LT DATE: 06/21/2023 13:30 INDICATION: Left shoulder lump. TECHNIQUE: Multiple grayscale and Doppler ultrasound images of the left upper limb were obtained. COMPARISON: None FINDINGS: There is capsular hypertrophy of the left acromioclavicular joint correlating with the nichelle ent's area of concern. IMPRESSION: 1. Capsular hypertrophy of the left acromioclavicular joint correlating with the patient's area of co ncern, likely secondary to osteoarthritis. Reviewed, dictated and finalized at location E. IMPRESSION: 1. Capsular hypertrophy of the left acromioclavicular joint correlating with th e patient's area of concern, likely secondary to osteoarthritis.
== END 2023-06-21 13:09 | disposition home or self-care (01) ==
LOC: ANHIMG 13:09
PROVIDERS: PCP Family Medicine; Visit Provider Plastic Surgery
DX: R22.32 Localized swelling, mass and lump, left upper limb (principal)
CPT/HCPCS: 76882

== ENCOUNTER 2023-07-23 08:15 | Outpatient (CLI) | payer OTHER, SELFPAY ==
--- NOTE | ~2023-07-23 | XR_ITS ---
Left Shoulder Technique: AP and axillary views were obtained. Clinical History: Pain Findings: No fracture or dislocation is seen. Osseous alignment is anatomic. The glenohumeral and acr omioclavicular joint spaces are preserved. Soft tissues are unremarkable. Impression: Unremarkable left shoulder radiographs. Reviewed, dictated and finalized at [facility]. Impression: Unremarkable left shoulder radiographs.
== END 2023-07-23 08:16 | disposition home or self-care (01) ==
LOC: CHSIMG 08:17
PROVIDERS: PCP Family Medicine; Visit Provider Family Medicine
DX: M25.512 Pain in left shoulder (principal)
CPT/HCPCS: 73030

== ENCOUNTER → 2023-08-06 10:27 | Outpatient (REF) | payer OTHER, SELFPAY | LOC: ANHLAB 10:27 | PROVIDERS: PCP Family Medicine; Visit Provider Plastic Surgery | DX: R22.0 Localized swelling, mass and lump, head (principal) | CPT/HCPCS: 88304; 88305 ==

== ENCOUNTER 2023-09-30 18:06 | Emergency (ER) | payer OTHER, SELFPAY ==
[2023-09-30] VITALS (21 sets, daily range): BP systolic 132–160; BP diastolic 82–104; PULSE 58–73; RESP 10–22; TEMP 36.8; O2SAT 93–97
--- NOTE | ~2023-09-30 | XR_ITS ---
XR chest 1V portable Ordering provider: Taye Thompson MD History: 48 years Male with . Chest pain x1 day . Comparison: None. FINDINGS: MEDIASTINUM: The cardiac silhouette is not enlarged. LUNGS: No infiltrates, effusions or pneumothorax. OTHER: No free air under the diaphragm. IMPRESSION: No acute cardiopulmonary pathology. Reviewed, dictated and finalized at location A.
--- NOTE | 2023-09-30 18:18 | ECG_ITS ---
Test Date: 2023-09-30 20:38:30 Measurements Intervals [place] Rate: 61 P: -6 MA: 143 QRS: 18 QRSD: 92 T: 32 QT: 413 QTc: 418 Interpretive Statements SINUS RHYTHM BASELINE ARTIFACT- II, III, AVR, AVL, AVF NORMAL ECG No previous ECG available for comparison Electronically Signed On 09-30-2023 21:22:02 CDT by Hilario Olmedo D.O.
--- NOTE | 2023-09-30 18:23 | ED.CHESTPAIN ---
HPI - Chest Pain General Chief Complaint: Chest Pain Stated Complaint: chest pain Time Seen by Provider: 09/30/23 18:11 Source: patient Mode of arrival: ambulatory Limitations: no limitations History of Present Illness HPI narrative: patient is a 48-year-old male with left-sided chest pain. He is having some pain that is under the left breast. It is a dull pain. Radiates to the left arm which is a chronic problem but worse tingling at this time. He has chronic cervical spine issues. Patient has occasional racing of the heart on and off for a while. MD complaint: chest pain Pertinent past history: other ( None) Onset (ago): day(s) (2) Timing of current episode: episodic Prior episodes: No Onset: during rest, during exertion and awoke with symptoms Pain location: substernal and left chest Pain radiation: left arm Severity: mild Pain scale (0-10): 2 Quality: dull Relieving factors: nothing Exacerbating factors: nothing Treatment prior to arrival: none Risk Factors Coronary artery disease risk factors: none Thoracic aortic dissection risk factors: none Related Data Home Medications Medication Instructions Recorded Confirmed No Home Medications 09/30/23 09/30/23 Allergies Allergy/AdvReac Type Severity Reaction Status Date / Time bee venom protein (honey bee) Allergy Severe Swelling Verified 09/30/23 18:17 of Lip/Tongue/Throat Review of Systems Review of Systems: All systems reviewed & are unremarkable except as noted in HPI and below Constitutional: Constitutional: Reports no additional constitutional complaints Eyes: Eyes: Reports no additional eye complaints ENT: Reports system reviewed and no additional complaints, except as documented Cardiovascular: Cardiovascular: Reports no additional cardiovascular complaints Respiratory: Respiratory: Reports no additional respiratory complaints Gastrointestinal: Gastrointestinal: Reports no additional gastrointestinal complaints Genitourinary: Genitourinary: Reports no additional male genitourinary complaints Musculoskeletal: Musculoskeletal: Reports no additional musculoskeletal complaints Integumentary/Breasts: Skin/Breast: Reports system reviewed and no additional complaints, except as docu Neurologic: Reports system reviewed and no additional complaints, except as documented Psychiatric: Psychiatric: Reports no additional psychiatric complaints Endocrine: Endocrine: Reports no additional endocrine complaints Hematologic/Lymphatic: Hematologic/Lymphatic: Reports no additional hematologic/lymphatic complaints Allergic/Immunologic: Allergic/Immunologic: Reports no additional allergic/immunologic complaints [facility] Past Medical History Medical History Arthritis of left shoulder region Chronic back pain Ganglion, left shoulder Surgical History Surgical History History of spinal surgery C4-C7 fusion Social History Social History Smoking status: Current every day smoker Smokeless tobacco user: chewing tobacco Alcohol intake: current Drinks per week: 3 Occupation/Education: occupation 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- [employer] Gender identity (if verbalized by the patient): Male Exam Const: General: healthy appearing Nutritional Appearance: well nourished Orientation/consciousness: patient oriented x3 HENMT: Head: normal to inspection Ears: external ears normal Face/Nose/Sinus: Normal external nose present Eyes: Conjunctivae: conjunctivae normal Pupils: Equal, round and reactive pupils present EOM: EOMs intact bilaterally Neck: Neck: normal visual inspection Chest: Chest palpation & inspection: normal inspection of the chest Resp: Effort & Inspection: normal respiratory effort and not labored Auscultation: clear to auscu
[2023-09-30 18:45] LABS: Basophils Absolute Auto 0.03 K/mm3 (0.00-0.10); Basophils Percent Auto 0.6 % (0.0-1.0); Eosinophils Absolute Auto 0.07 K/mm3 (0.02-0.50); Eosinophils Percent Auto 1.4 % (1.0-6.0); Hematocrit 43.4 % (40.0-54.0); Hemoglobin 14.8 g/dL (14.0-18.0); Immature Granulocyte Absolute 0.01 K/mm3 (0.00-0.00); Immature Granulocyte Percent A 0.2 % (0.0-0.0); Lymphocytes Absolute Auto 1.72 K/mm3 (1.10-4.50); Lymphocytes Percent Auto 33.3 % (18.0-42.0); Mean Corpuscular HGB Conc 34.1 g/dL (32-36); Mean Corpuscular Hemoglobin 29.7 pg (27.0-31.0); Mean Platelet Volume 10.3 fl (8.7-11.0); Monocytes Absolute Auto 0.39 K/mm3 (0.10-0.90); Monocytes Percent Auto 7.5 % (2.0-11.0); Neutrophils Absolute Auto 2.95 K/mm3 (1.70-7.20); Platelet Count Result 182 K/mm3 (150-420); Red Blood Count 4.99 M/mm3 (4.70-6.10); Red Cell Distribution Width 12.1 % (11.6-14.4); White Blood Count 5.2 K/mm3 (4.8-10.8)
[2023-09-30 18:53] LABS: D Dimer 0.25 mg/L (0.19-0.50); Prothrombin Time 10.5 Seconds (9.50-12.1)
--- NOTE | 2023-09-30 18:55 | PC.NURSE ---
assumed care. report received from Pearl EVANS.
[2023-09-30 19:02] LABS: Alanine Aminotransferase 43 U/L (16-63); Albumin Level 4.1 g/dL (3.4-5.0); Alkaline Phosphatase 67 U/L (46-116); Anion Gap 13 mmol/L (4-12); Aspartate Amino Transferase 22 U/L (15-37); Bilirubin,Total 1.7 mg/dL (0.00-1.00); Blood Urea Nitrogen 13 mg/dL (7-18); Calcium 9.3 mg/dL (8.5-10.1); Carbon Dioxide 24 mmol/L (21-32); Chloride 103 mmol/L (98-108); Estimated Glomerular Filt Rate > 60; Glucose 91 mg/dL (70-99); Lipase 27 U/L (16-77); Magnesium 1.9 mg/dL (1.8-2.4); NT Pro B Type Natriuretic Pept 346 pg/mL (0-125); Osmolality Calculated 290 mOsm/kg (285-295); Potassium 3.8 mmol/L (3.5-5.1); Sodium 140 mmol/L (136-145); Total Protein 7.1 g/dL (6.4-8.2)
--- NOTE | 2023-09-30 19:05 | PC.NURSE ---
patient is resting on stretcher. family at the bedside. no needs voiced. call light in reach. waiting on test results
[2023-09-30 19:15] LABS: Troponin I < 4.0 ng/L (0.00-60.4)
--- NOTE | 2023-09-30 19:49 | ECG_ITS ---
Test Date: 2023-09-30 18:21:43 Measurements Intervals [place] Rate: 66 P: -7 MD: 135 QRS: 19 QRSD: 90 T: 37 QT: 392 QTc: 414 Interpretive Statements SINUS RHYTHM BASELINE ARTIFACT- I, II, III, AVL NORMAL ECG No previous ECG available for comparison Electronically Signed On 10-01-2023 06:17:37 CDT by Hilario Olmedo D.O.
--- NOTE | 2023-09-30 20:00 | PC.NURSE ---
updated patient that new blood work would be needed at approx 2029. Patient and family member verbalized understanding. call light in reach. will go home and check on animals
--- NOTE | 2023-09-30 20:10 | PC.NURSE ---
notified lab that second troponin would be due at approx 2030
--- NOTE | 2023-09-30 20:48 | PC.NURSE ---
resting quietly on stretcher. call light in reach. awaiting lab results
--- NOTE | 2023-09-30 21:00 | PC.NURSE ---
notified lab that patient has trop due at 2037. she is on her way to come draw blood now.
--- NOTE | 2023-09-30 21:07 | PC.NURSE ---
at the bedside. lab at the bedside
[2023-09-30 21:44] LABS: Troponin I < 4.0 ng/L (0.00-60.4)
--- NOTE | 2023-09-30 21:48 | PC.NURSE ---
patient is resting on stretcher with at the bedside. troponin results have posted. ER provider was notified. call light in reach
== END 2023-09-30 22:08 | disposition home or self-care (01) ==
PROVIDERS: Emergency Provider Emergency Medicine; PCP Family Medicine
DX: R07.89 Other chest pain (principal); F17.220 Nicotine dependence, chewing tobacco, uncomplicated
CPT/HCPCS: 36415; 71045; 80053; 83690; 83735; 83880; 84484; 85025; 85380; 85610; 85730; 93005; 99284

== ENCOUNTER 2023-10-24 09:12 | Outpatient (CLI) | payer OTHER, SELFPAY ==
--- NOTE | 2023-10-26 11:22 | WPDHOLTEREM ---
Holter/Event Monitor Holter/Event Monitor Date of procedure: 10/24/23 Holter/Event Procedure: 48 Hr Holter Monitor Indications: Tachycardia Conclusion: 1. 48 hour holter monitor on 10/24/23. 2. Underlying rhythm is sinus rhythm. HR range 47-148 bpm; average HR 69 bpm. HR at 47 bpm was at 05:03; HR at 148 bpm was at 15:19. 3. There are 50 premature supraventricular complexes and 4 supraventricular couplets. No supraventricular tachycardia. 4. There are 1,102 premature ventricular complexes. No ventricular tachycardia. 5. No sinoatrial or atrioventricular blocks. No significant pauses greater than 2 seconds. 6. Patient reports symptom of fast heart rate and chest tightness which demonstrate sinus rhythm, HR range 67-118 bpm.
== END 2023-10-24 09:13 | disposition home or self-care (01) ==
LOC: CHSCARD 09:14
PROVIDERS: PCP Family Medicine; Visit Provider Nurse Practitioner Family
DX: R00.2 Palpitations (principal); R00.0 Tachycardia, unspecified
CPT/HCPCS: 93225; 93226

== ENCOUNTER 2023-10-29 09:33 | Outpatient (CLI) | payer OTHER, SELFPAY ==
--- NOTE | ~2023-10-29 | XR_ITS ---
EXAMINATION:XR cervical spine 4-5V DATE: 10/29/2023 11:52 INDICATION: Chronic bilateral hand numbness TECHNIQUE: AP, lateral, left and right oblique, lateral swimmers and odontoid views of the cervical s pine are provided. COMPARISON: 10/11/2020 FINDINGS: C4-C7 anterior spinal fusion with interbody bone graft cages at each level and anterior plate and scr ew fixation. Alignment is normal. Odontoid is intact. Normal atlantoaxial interval. Unfused vertebra l body heights are normal. Interval progression of moderate disc height loss at C3-C4 and mild disc h eight loss at C2-C3. There is severe right-sided and moderate left-sided uncovertebral osteoarthritis at C3-C4. Posterior osteophyte at the inferior endplate of C3 contributing to mild central canal elina nosis at this level. There is mild to moderate bilateral cervical facet osteoarthritis. There is mild narrowing of the bilateral neural foramina C3-C4 through C5-C6. Prevertebral soft tissues are juwan l. This last apices of the lungs are clear. IMPRESSION: 1. Instrumented C4-C7 anterior spinal fusion. 2. Interval progression of mild to moderate spondylosis in the more cephalad cervical spine. Reviewed, dictated and finalized at location A. IMPRESSION: 1. Instrumented C4-C7 anterior spinal fusion. 2. Interval progression of mild to moderate spondylosis in the more cephalad ce rvical spine.
--- NOTE | 2023-10-29 09:38 | EST_ITS ---
Patient Info Name: Homar Clark Age: 48 years : 1975 Gender: Male Ht: 74 in Wt: 225 lbs BSA: 2.33 m2 HR: 72 bpm BP: 122 / 76 mmHg Heart Rhythm: Sinus Rhythm Technical Quality: Good Exam Date: 10/29/2023 10:12 AM Exam Location: Echo Lab Patient Status: Outpatient Admit Date: 10/29/2023 Staff Ordering Physician: Fernanda Segovia NP Attending Provider: Fabiola Dixon NMAA Exam Type: CA stress test treadmill Study Info A treadmill exercise stress test was performed. Summary 1. 1. Negative Michael exercise stress test for ischemic ST changes by ECG criteria. 2. 2. Good functional capacity, achieving 12 METs of workload. 3. 3. Appropriate HR response to exercise. 4. 4. Appropriate HR recovery at 1 minute post exercise. 5. 5. No imaging with stress testing. Protocol: Michael Stress ECG Details Stage: REST Duration (min): 3 min : 41 sec Speed (mph): 0.0 Grade (%): 0 HR (bpm): 71 SBP (mmHg): 122 DBP (mmHg): 74 METS: --- Stage: REST Duration (min): 4 min : 51 sec Speed (mph): 0.0 Grade (%): 0 HR (bpm): 87 SBP (mmHg): 122 DBP (mmHg): 74 METS: --- Stage: STAGE 1 Duration (min): 1 min : 0 sec Speed (mph): 1.7 Grade (%): 10 HR (bpm): 93 SBP (mmHg): 122 DBP (mmHg): 74 METS: --- Stage: STAGE 1 Duration (min): 2 min : 0 sec Speed (mph): 1.7 Grade (%): 10 HR (bpm): 95 SBP (mmHg): 122 DBP (mmHg): 74 METS: --- Stage: STAGE 1 Duration (min): 3 min : 0 sec Speed (mph): 1.7 Grade (%): 10 HR (bpm): 96 SBP (mmHg): 160 DBP (mmHg): 74 METS: --- Stage: STAGE 2 Duration (min): 1 min : 0 sec Speed (mph): 2.5 Grade (%): 12 HR (bpm): 109 SBP (mmHg): 160 DBP (mmHg): 74 METS: --- Stage: STAGE 2 Duration (min): 2 min : 0 sec Speed (mph): 2.5 Grade (%): 12 HR (bpm): 110 SBP (mmHg): 160 DBP (mmHg): 74 METS: --- Stage: STAGE 2 Duration (min): 3 min : 0 sec Speed (mph): 2.5 Grade (%): 12 HR (bpm): 120 SBP (mmHg): 157 DBP (mmHg): 67 METS: --- Stage: STAGE 3 Duration (min): 1 min : 0 sec Speed (mph): 3.4 Grade (%): 14 HR (bpm): 139 SBP (mmHg): 157 DBP (mmHg): 67 METS: --- Stage: STAGE 3 Duration (min): 2 min : 0 sec Speed (mph): 3.4 Grade (%): 14 HR (bpm): 150 SBP (mmHg): 157 DBP (mmHg): 67 METS: --- Stage: STAGE 3 Duration (min): 3 min : 0 sec Speed (mph): 3.4 Grade (%): 14 HR (bpm): 158 SBP (mmHg): 173 DBP (mmHg): 65 METS: --- Stage: STAGE 4 Duration (min): 1 min : 0 sec Speed (mph): 4.2 Grade (%): 16 HR (bpm): 169 SBP (mmHg): 173 DBP (mmHg): 65 METS: --- Stage: STAGE 4 Duration (min): 2 min : 0 sec Speed (mph): 4.2 Grade (%): 16 HR (bpm): 172 SBP (mmHg): 173 DBP (mmHg): 65 METS: --- Stage: STAGE 4 Duration (min): 2 min : 0 sec Speed (mph): 4.2 Grade (%): 16 HR (bp
== END 2023-10-29 09:34 | disposition home or self-care (01) ==
PROVIDERS: PCP Nurse Practitioner Family; Visit Provider Nurse Practitioner Family
DX: G54.2 Cervical root disorders, not elsewhere classified (principal); R00.0 Tachycardia, unspecified; R00.2 Palpitations; Z98.1 Arthrodesis status; M43.02 Spondylolysis, cervical region
CPT/HCPCS: 72050; 93017

== ENCOUNTER 2023-10-31 11:06 | Outpatient (RCR) | payer OTHER, SELFPAY ==
--- NOTE | 2023-10-31 13:14 | OPREHPOC ---
Outpatient Therapy Plan of Care This is a Multidisciplinary Plan of Care that may contain components documented by all disciplines (PT, OT, and ST.) PT Problem 1 PT Problem #1 Knowledge Deficit PT Goal 1 Goal / Goal Update 1. independent and compliant with HEP Target Visit 3 PT Problem 2 PT Problem #2 Impaired Range of Motion PT Goal 1 Goal / Goal Update 1. improve active rom cervical flexion and extension to 45 degrees each or better Target Visit 6 PT Problem 3 PT Problem #3 Impaired Strength PT Goal 1 Goal / Goal Update 1. improve L molding technician strength to 135 lbs or better Target Visit 6 PT Problem 4 PT Problem #4 Impaired Functional Mobil PT Goal 1 Goal / Goal Update 1. NDI to display less than 10% functional deficits 2. patient to report reduction of paresthesia intensity and frequency in the L UE. Target Visit 6
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
--- NOTE | 2023-11-15 12:07 | OPREHPOC ---
Outpatient Therapy Plan of Care This is a Multidisciplinary Plan of Care that may contain components documented by all disciplines (PT, OT, and ST.) PT Problem 1 PT Problem #1 Knowledge Deficit PT Goal 1 Goal / Goal Update 1. independent and compliant with HEP Target Visit 3 Progress Met PT Problem 2 PT Problem #2 Impaired Range of Motion PT Goal 1 Goal / Goal Update 1. improve active rom cervical flexion and extension to 45 degrees each or better Target Visit 6 Progress Partially Met PT Goal 2 Goal / Goal Update continue PT Problem 3 PT Problem #3 Impaired Strength PT Goal 1 Goal / Goal Update 1. 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 NDI to display less than 10% functional deficits -not met 2. patient to report reduction of paresthesia intensity and frequency in the L UE. -met Target Visit 6 PT Goal 2 Goal / Goal Update Continue 1
--- NOTE | 2023-11-15 12:07 | PTOPPROG ---
Assessment and note entered by Carolee Gregorio, PT Evaluation Information Assessment Status Progress ICD-10 Condition Codes (PT) Cervicalgia M54.2,M54.13 Onset 10/29/23 Subjective Information Homar reports his neck is getting better since he has been doing PT however, he feels extra stiff today after spending several hours catching fish yesterday. He notes he still has tingling in his L UE but it is less intense. He feels PT is helping and his doctor wanted him to continue until his next follow up on 11/29/23. Assessment PT Clinical Summary Homar Clark has completed 6 skilled PT visits . He is reporting less intensity of paresthesias in the left UE, less neck pain, and less stiffness . He demonstrates improved cervical extension and right rotation AROM however, he had a regression in flexion and left lateral flexion. He is demonstrating tenderness on the right upper trapezius today and continues to have increased paresthesias with cervical quadrant testing. He will continue to benefit from skilled PT for these limitations. Plan of Care Interventions Electrical Stimulation,Hot Pack/Cold Pack,Manual Therapy,Patient/Caregiver Educati,Therapeutic Exercise PT Services Indicated Yes Treatment Frequency and 2 times a week for 4 visits Duration These treatments will address the objective and functional deficits as defined above. The patient will be advanced safely and appropriately in order for the patient to progress towards his/her prior level of function. Additional exercises will be introduced and as well as a comprehensive home exercise program upon discharge, if needed, ?to ensure carryover of functional gains achieved in the clinic. This treatment plan has been reviewed and agreement upon by the patient.
--- NOTE | 2023-11-29 13:35 | OPREHPOC ---
Outpatient Therapy Plan of Care This is a Multidisciplinary Plan of Care that may contain components documented by all disciplines (PT, OT, and ST.) PT Problem 1 PT Problem #1 Knowledge Deficit PT Goal 1 Goal / Goal Update 1. independent and compliant with HEP Target Visit 3 Progress Met PT Problem 2 PT Problem #2 Impaired Range of Motion PT Goal 1 Goal / Goal Update 1. improve active rom cervical flexion and extension to 45 degrees each or better Target Visit 6 Progress Partially Met PT Goal 2 Goal / Goal Update continue PT Problem 3 PT Problem #3 Impaired Strength PT Goal 1 Goal / Goal Update 1. improve L storm door maker strength to 135 lbs or better Target Visit 6 Progress Met PT Problem 4 PT Problem #4 Impaired Functional Mobil PT Goal 1 Goal / Goal Update 1. NDI to display less than 10% functional deficits -not met 2. patient to report reduction of paresthesia intensity and frequency in the L UE. -met Target Visit 6 Progress Partially Met PT Goal 2 Goal / Goal Update Continue 1
--- NOTE | 2023-11-29 13:35 | PTOPDC ---
Assessment and note entered by Carolee Gregorio, PT Evaluation Information Assessment Status Discharge ICD-10 Condition Codes (PT) Cervicalgia M54.2 Onset 10/29/23 Subjective Information Homar reports he saw the nurse practitioner at his PCP's offfice earlier today and she is going to order a MRI of his cervical spine. He is reporting minimal neck pain noting 0/10 pain today and 2/10 pain at highest over the last week. He does not feel limited with daily activities due to his neck. He does still get pain and locking in his neck when he lay down on his right side. He also gets occasional shooting pain in the left UE. He notes sometimes with quick movements of his head, he feels a brief instance of his body shutting down. The patient would like to discontinue PT until his MRI results are received. lumbar spine bother him more Reported Pain Level Pain Score 0: Self Report Assessment PT Clinical Summary Homar Clark has completed 10 skilled PT visits for cervicalgia. He is reporting less numbness in his left UE and no cervical pain overall. He is still getting occasional shooting pain in the L UE with quick movements but he does not feel limited with ADLs due to his cervical spine. He demonstrates improved cervical AROM overall, improved posture, and improved UE strength. He will be having a MRI of his cervical spine and will be discharged to an independent [facility] at this time. Plan of Care PT Services Indicated No
== END 2023-11-29 14:37 | disposition home or self-care (01) ==
LOC: CHSPT 11:06
PROVIDERS: Visit Provider Nurse Practitioner Family
DX: G54.2 Cervical root disorders, not elsewhere classified (principal)
CPT/HCPCS: 97014; 97110; 97112; 97140; 97161; 97750; G0283

== ENCOUNTER 2023-11-02 12:33 | Outpatient (CLI) | payer OTHER, SELFPAY ==
[2023-11-02 12:45] LABS: Basophils Absolute Auto 0.05 K/mm3 (0.00-0.10); Basophils Percent Auto 1.1 % (0.0-1.0); Eosinophils Absolute Auto 0.17 K/mm3 (0.02-0.50); Eosinophils Percent Auto 3.8 % (1.0-6.0); Hematocrit 41.4 % (40.0-54.0); Hemoglobin 13.8 g/dL (14.0-18.0); Immature Granulocyte Absolute 0.01 K/mm3 (0.00-0.00); Immature Granulocyte Percent A 0.2 % (0.0-0.0); Lymphocytes Absolute Auto 2.16 K/mm3 (1.10-4.50); Lymphocytes Percent Auto 47.7 % (18.0-42.0); Mean Corpuscular HGB Conc 33.3 g/dL (32-36); Mean Corpuscular Hemoglobin 30.3 pg (27.0-31.0); Mean Platelet Volume 11.3 fl (8.7-11.0); Monocytes Absolute Auto 0.34 K/mm3 (0.10-0.90); Monocytes Percent Auto 7.5 % (2.0-11.0); Neutrophils Percent Auto 39.7 % (50.0-70.0); Platelet Count Result 196 K/mm3 (150-420); Red Blood Count 4.55 M/mm3 (4.70-6.10); White Blood Count 4.5 K/mm3 (4.8-10.8)
[2023-11-02 13:26] LABS: Hemoglobin A1C 5.4 % (<5.7)
[2023-11-02 13:48] LABS: Alanine Aminotransferase 26 U/L (16-63); Albumin Level 4.1 g/dL (3.4-5.0); Alkaline Phosphatase 67 U/L (46-116); Anion Gap 7 mmol/L (4-12); Aspartate Amino Transferase 17 U/L (15-37); Bilirubin,Total 1.1 mg/dL (0.00-1.00); Blood Urea Nitrogen 12 mg/dL (7-18); Calcium 9.1 mg/dL (8.5-10.1); Carbon Dioxide 29 mmol/L (21-32); Chloride 101 mmol/L (98-108); Cholesterol 166 mg/dL (0-200); Estimated Glomerular Filt Rate > 60; Folic Acid 7.9 ng/mL (8.6->20); Glucose 93 mg/dL (70-99); HDL Direct 38 mg/dL (40-60); LDL Cholesterol Calculated 116 mg/dL (<130); Osmolality Calculated 283 mOsm/kg (285-295); Potassium 4.3 mmol/L (3.5-5.1); Sodium 137 mmol/L (136-145); Thyroid Stimulating Hormone Reflex 2.67 u/IU/mL (0.36-3.74); Total Protein 6.7 g/dL (6.4-8.2); Triglycerides 62 mg/dL (0-150); Vitamin B12 342 pg/mL (193-986)
[2023-11-14 09:57] LABS: Testosterone Free 80 pg/mL (35.0-155.0); Testosterone Total 331 ng/dL (250-1100)
== END 2023-11-02 12:34 | disposition home or self-care (01) ==
LOC: CHSLAB 12:35
PROVIDERS: Nurse Practitioner Family; PCP Family Medicine; Visit Provider Family Medicine
DX: Z00.00 Encounter for general adult medical examination without abnormal findings (principal); R00.2 Palpitations; E03.9 Hypothyroidism, unspecified; E11.9 Type 2 diabetes mellitus without complications; F41.1 Generalized anxiety disorder; E53.8 Deficiency of other specified B group vitamins
CPT/HCPCS: 36415; 80053; 80061; 82607; 82746; 83036; 84402; 84403; 84443; 85025

== ENCOUNTER 2023-11-15 13:42 | Outpatient (CLI) | payer OTHER, SELFPAY ==
--- NOTE | 2023-11-15 13:46 | ECHO_ITS ---
Patient Info Name: Homar Clark Age: 48 years : 1975 Gender: Male Ht: 74 in Wt: 225 lbs BSA: 2.33 m2 HR: 50 bpm BP: 130 / 87 mmHg Technical Quality: Fair Exam Date: 11/15/2023 2:01 PM Exam Location: Echo Lab Patient Status: Outpatient Admit Date: 11/15/2023 Staff Ordering Physician: Hilario Olmedo DO Space Physicist: Caryn Whitten RDCS Attending Provider: Hilario Olmedo DO Referring Physician: Honorio ESTEVES; Exam Type: CA echo doppler color flow Study Info Indications R00.2 - Palpitations Complete two-dimensional, color flow and Doppler transthoracic echocardiogram is performed. Summary 1. Complete two-dimensional, color flow and Doppler transthoracic echocardiogram is performed. 2. Left ventricular chamber dimension is normal. 3. Left ventricular systolic function is normal, estimated at 60-65%. 4. The left ventricular diastolic function is normal. 5. E/e' 5 is not elevated. 6. There is mild mitral valve regurgitation. 7. There is trace tricuspid valve regurgitation. 8. No pulmonary hypertension, estimated pulmonary arterial systolic pressure is 12 mmHg. 9. There is trace pulmonic regurgitation. Left Ventricle E/e' 5 is not elevated. Left ventricular chamber dimension is normal. Left ventricular systolic function is normal, estimated at 60-65%. The left ventricular diastolic function is normal. Right Ventricle Right ventricular systolic function is normal and with normal TAPSE 2.2 cm. Right ventricular chamber dimension is normal. Left Atria Left atrial chamber dimension is normal. Right Atria Right atrial chamber dimension is normal. Aortic Valve The aortic valve is trileaflet. There is no aortic valve stenosis. There is no aortic valve regurgitation. Pulmonic Valve There is trace pulmonic regurgitation. Mitral Valve There is no mitral valve stenosis. There is mild mitral valve regurgitation. Tricuspid Valve There is trace tricuspid valve regurgitation. No pulmonary hypertension, estimated pulmonary arterial systolic pressure is 12 mmHg. Pericardium/Pleural There is no pericardial effusion. Inferior Vena Cava Normal inferior vena cava with >50% collapse upon inspiration consistent with normal right atrial pressure, 5 mmHg. Aorta The aortic root size at the sinus of Valsalva is normal. Left Ventricular Outflow Tract Name Value Normal LVOT 2D LVOT Diameter 2.1 cm LVOT Doppler LVOT Peak Gradient 5 mmHg LVOT Mean Gradient 2 mmHg LVOT VTI 23 cm LVOT VTI/AV VTI Ratio 0.9 LVOT Stroke Volume 82 ml LVOT CO 4.0 l/min LVOT CI 1.7 l/min/m2 Pulmonic Valve Name Value Normal PV Doppler PV Peak Gradient 2 mmHg PV Regurgitation Doppler
== END 2023-11-15 13:43 | disposition home or self-care (01) ==
LOC: ANHCARD 13:43
PROVIDERS: PCP Family Medicine; Visit Provider Internal Medicine Cardiovascular Disease
DX: I34.0 Nonrheumatic mitral (valve) insufficiency (principal); R00.2 Palpitations
CPT/HCPCS: 93306

== ENCOUNTER 2023-12-13 07:45 | Outpatient (CLI) | payer OTHER, SELFPAY ==
--- NOTE | ~2023-12-13 | MR_ITS ---
MRI of the cervical spine Clinical History: Cervicalgia Technique: Axial T2-weighted and gradient images, and sagittal T1-weighted, T2-weighted, and STIR pawel ges were acquired. COMPARISON: 12/18/2017 Findings: Status post interval anterior fusion extending from C4 through C7, with associated plate an d screws, and disc fusion cages at the relevant disc spaces. There is minimal degenerative change at C3-C4. No acute fracture or subluxation evident. No suspicious bone marrow signal abnormality seen. At C2-C3, there is minimal disc bulge. No spinal canal stenosis, cord compression, or neural foramina l narrowing. At C3-C4, there is disc osteophyte complex with mild canal stenosis and effacement of thecal sac but no earnest cord compression. There is mild bilateral neural foraminal narrowing. At C4-C5, there is minimal disc osteophyte complex. There is canal stenosis and mild to moderate cord compression. There is focal T2 hyperintensity in the cord is lesion, compatible chronic myelomalacia at the C4 level. Neural foramina are intact. At C5-C6, there is no disc bulge or herniation. There is probable mild bilateral foraminal narrowing. No canal stenosis or cord compression. At C6-C7, there is no disc bulge or herniation. No spinal canal stenosis, cord compression, or defini te neural foraminal narrowing. Paravertebral soft tissues are unremarkable. Impression: T2 hyperintensity in the spinal cord at the C4 level, compatible with chronic myelomalacia changes. Status post interval anterior fusion from C4 through C7. Mild degenerative spondylosis, as above. Reviewed, dictated and finalized at [facility]. Impression: T2 hyperintensity in the spinal cord at the C4 level, compatible with chronic m yelomalacia changes. Status post interval anterior fusion from C4 through C7. Mild degenerative spondylosis, as above.
== END 2023-12-13 07:46 | disposition home or self-care (01) ==
LOC: CHSIMG 07:46
PROVIDERS: PCP Nurse Practitioner Family; Visit Provider Nurse Practitioner Family
DX: G89.29 Other chronic pain (principal); M43.22 Fusion of spine, cervical region; M54.2 Cervicalgia; Z98.1 Arthrodesis status; M43.02 Spondylolysis, cervical region
CPT/HCPCS: 72141

== ENCOUNTER 2024-06-05 09:51 | Outpatient (CLI) | payer OTHER, SELFPAY ==
--- NOTE | ~2024-06-05 | MR_ITS ---
MRI of the thoracic spine Clinical History: Cervicalgia, pain Technique: Axial T2-weighted and gradient images, and sagittal T1-weighted, T2-weighted, and STIR pawel ges were acquired. Findings: There is no fracture or sublocation of the thoracic spine. Vertebral bodies maintain normal height and alignment. No bone marrow signal abnormality seen. Intervertebral disc spaces are relatively well-preserved. No significant disc bulge or herniation frank ntified. No spinal canal stenosis or cord compression in the thoracic spine. Neural foramina are pres erved throughout the thoracic spine. No epidural mass or collection. No abnormal signal seen in the spinal cord. Paravertebral soft tissue s are unremarkable. Impression: No significant abnormality. Reviewed, dictated and finalized at location . Impression: No significant abnormality.
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
--- OUTSIDE RECORDS SUMMARY | 2024-06-05 10:28 | XMS_ITS | Referral Summary ---
Author Organization [facility] Address [address] [place] [address] Care Team Providers Care Brine Tank Separator Operator Name Role Phone No, Physician Primary Care Provider [phone] Allergies No known active allergies Medications acetaminophen [...] Q uit: No; Counseling Given: Not Answered [facility] [employer]ities Answer Date Recorded In the past 12 months has [employer], gas, oil, or water [employer] threatened to shut off services in your [...] week 05/20/2023 How often do you attend [facility] or judaism services? 1 to 4 times per year 05/20/2023 Do you belong to any clubs o r organizations such as rastafarian groups, unions, fraternal or athletic groups, or [...] care, and heating? Not very hard 05/20/2023 [facility] of Occupat ional Health - Occupational Stress [...] place to sleep or slept in a assisted (including now)? No 05/20/2023 Personal Safety Answer Date Recorded Have you ever been in or are you currently in a harmful physical or emotional relationship or is someone making you feel afraid or unsafe? 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 Gender Identity Not on file Sexual Orientation Not on file Last Filed Vital Signs Vital Sign Reading [...] 06/05/2023 2:39 PM CDT Plan of Treatment Not on file Insurance PPO [facility] PPO [employer] Address: [facility] [id number] [place] [address] Advance Directives For more information, please contact: [phone] * Full Code (Latest Code Status on File) Date Activated Date Inactivated Comments 05/20/2023 1:44 AM 05/21/2023 6:26 PM Care Teams Brine Tank Separator Operator Relationship Specialty Start Date End Date No, Physician PCP - General 05/19/23
--- OUTSIDE RECORDS SUMMARY | 2024-06-05 10:28 | XMS_ITS | Clinical Summary ---
Author Organization [employer] [address] [facility] Address [address] [place] [address] Care Team Providers Care Director Of Vital Statistics Name Role Phone Unavailable Primary Care Provider Unavailabl e Allergies Active Allergy Reactions Criticality Noted Date Comments Hymenoptera Allergenic Extract Swelling Medium 08/14/2018 Pollen Extracts Unknown Low 08/14/2018 Runny nose, sneezing Venom-Wasp Swelling Medium 08/14/2018 Medications fexofenadine (PAO) 180 mg tablet Take 180 mg by mouth 1 time daily as needed for Allergies. Active acetaminophen (TYLENOL) 325 mg tablet Take 2 Tablets (650 mg) by mouth every 6 hours as needed for Other (See Comment) (See admin instructions ). 09/26/2018 Active docusate sodium (COLACE) 100 mg capsule Take 1 Capsule (100 mg) by mouth 2 times daily. 09/26/2018 Active oxyCODONE (ROXICODONE) 5 mg tabletIndication s:Cervical spondylosis with myelopathy Take 1 Tablet (5 mg) by mouth every 6 hours as needed for severe pain. Max Daily Amount: 20 mg 20 Tablet 09/26/2018 12:24 PM CDT 09/26/2018 Active Active Problems Problem Noted Date Diagnosed Date Osteoarthritis of cervical spine 09/26/2018 Tingling of left upper extremity 09/26/2018 Cervical spondylosis with myelopathy 08/13/2018 Immunizations Immunization Administration Dates Next Due Influenza Seasonal Unspecifi ed Formulation IM 09/25/2018(Deferred: Patient Refused) Family History Medical History Relation Name Comments No Known Problems Father No Known Problems Mother No Known Problems Sister Relation Name Status Comments Father Alive Mother Alive Sister Alive Social History Tobacco Use Types Packs/Day Years Used Date Smoking Tobacco: Former Smokeless Tobacco: Former Chew Quit: 2016 Alcohol Use Standard Drinks/Week Comments Yes 0 (1 standard drink = 0.6 oz pur e alcohol) moderate Sex and Gender Information Value Date Recorded Sex Assigned at Not on file Legal Sex Male 3:02 PM CDT Gender Identity Not on file Sexual Orientation Not on file 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 Not on file Not on file Not on file Last Filed Vital Signs Vital Sign Reading Time Taken Comments Blood Pressure 134/78 09/26/2018 8:00 AM CDT Pulse 54 09/26/2018 8:00 AM CDT Temperature 36.4 C (97.6 F) 09/26/2018 8:00 AM CDT Respiratory Rate 20 09/26/2018 8:00 AM CDT Oxygen Saturation 99% 09/26/2018 8:00 AM CDT Inhaled Oxygen Concentration - - Weight 103.4 kg (228 lb) 09/26/2018 4:38 AM CDT Height 188 cm (6' 2 ) 09/25/2018 6:17 PM CDT Body Mass Index 29.27 09/25/2018 6:17 PM CDT Plan of Treatment Health Maintenance Due Date Last Done Comments DTAP/TDAP/TD VACCINES (1 - Tdap) 1993 HEPATITIS B VACCINES (1 of 3 - 19+ 3-dose series) 04/06 COLORECTAL SCREENING 2019 Colorectal Cancer Screening 2019 FIT-DNA Q 3 years 2019 FIT/FOBT Q 1 year 2019 Flex Sig/CT Colonography Q 5 years 2019 INFLUENZA VACCINE (#1) 2023 ZOSTER VACCINE (1 of 2) 2024 Medical Devices Implanted Type Area Crew Person Device Identifier Shelf Expiration Date Model / Serial / Lot Plate [place] 62.5mm Implanted:Qty : 1 on 09/25/2018 by Brad Harris MD at [facility] Plate N/A: Neck [employer] [id number] / / Description:ENTERED BY NATHAN Jauregui [id number] Screw 4.0x14 Mm Implanted:Qty : 4 on 09/25/2018 by Brad Harris MD at [facility] N/A: Neck [employer] [id number] / / Description:ENTERED BY NATHAN Jauregui [id number] Screw 4.0x16 Mm Implanted:Qty : 4 on 09/25/2018 by Brad Harris MD at [facility] Screw N/A: Neck [employer] [id number] / / Description:ENTERED BY NATHAN Jauregui [id number] Sealant Floseal 5ml [id number] - Sna Implanted:Qty : 1 on 09/25/2018 by Brad Harris MD at [facility] Sealant N/A: Neck [employer] 02/14/2020 [id number] / NA / [id number] Spacer Anatomic Peek Ptc [id number] Mm Implanted:Qty : 1 on 09/25/2018 by Brad Harris MD at [facility] Spacer N/A: Neck [employer] 09/29/2021 [id number] / / [id number] Description:ENTERED BY NATHAN Jauregui [id number] REQ#[id number] Spacer Anatomic Peek Ptc [id number] Mm Implanted:Qty : 1 on 09/25/2018 by Brad Harris MD at [facility] Spacer N/A: Neck [employer] 07/20/2025 [id number] / / [id number] Description:ENTERED BY NATHAN Jauregui [id number] Spacer Anatomic Peek Ptc [id number] Mm Implanted:Qty : 1 on 09/25/2018 by Brad Harris MD at [facility] Spacer N/A: Neck [employer] 06/14/2025 [id number] / / [id number] Description:ENTERED BY NATHAN Jauregui [id number] Putty Prentiss Dbm 2.5ml [id number] - [id number] Implanted:Qty : 1 on 09/25/2018 by Brad Harris MD at [facility] Tissue N/A: Neck [employer] 04/22/2021 [id number] / [id number] / NA R Index Finger Metal Right: [place] [address] 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
--- OUTSIDE RECORDS SUMMARY | 2024-06-05 10:28 | XMS_ITS | Clinical Summary ---
Author Organization [facility] Address [address] [place] [address] Care Team Providers Care Diesel Technology Instructor Name Role Phone Unavailable Primary Care Provider Unavailabl e Source Comments [facility],non-owned Affiliates and Associated Physician Practices is amultiple site organization consisting of ambulatory clinics and hospital sitesin [place], [place], [place] and [place]. This disclosure is being madepursuant to the Care Everywhere program and may not contain all information available regarding this patient. Last updated 17.[facility] Allergies No known active allergies Medications Be aware that medications may not be up to date on this document. Always verify current medications with the patient. No known medications Active Problems No known active problems Social History Tobacco Use Types Packs/Day Years Used Date Smoking Tobacco: Never Smokeless Tobacco: Former Sex and Gender Information Value Date Recorded Sex Assigned at Not on file Gender Identity Not on file Sexual Orientation Not on file Last Filed Vital Signs Vital Sign Reading Time Taken Comments Blood Pressure 112/80 05/11/2018 10:03 AM INTERNAL WHOLESALER Pulse 62 05/11/2018 10:03 AM INTERNAL WHOLESALER Temperature 37.1 C (98.7 F) 05/11/2018 10:03 AM INTERNAL WHOLESALER Respiratory Rate 16 05/11/2018 10:03 AM INTERNAL WHOLESALER Oxygen Saturation 95% 05/11/2018 10:03 AM INTERNAL WHOLESALER Inhaled Oxygen Concentration - - Weight 107 kg (236 lb) 05/11/2018 10:03 AM INTERNAL WHOLESALER Height 190.5 cm (6' 3 ) 05/11/2018 10:03 AM INTERNAL WHOLESALER Body Mass Index 29.5 05/11/2018 10:03 AM INTERNAL WHOLESALER Plan of Treatment Health Maintenance Due Date Last Done Comments COLOGUARD (AGES 45-75) - COL ON CA SCREENING 1974 COLON MONITORING 1974 COLONOSCOPY - COLON CA SCREENING 1974 CT COLONOGRAPHY - COLON CA SCREENING 1974 Colorectal Cancer Screening 1974 FIT - COLON CA SCREENING 1974 FLEX SIG - COLON CA SCREENING 1974 LIPID TESTING 1974 HIV SCREENING 1989 HEPATITIS C SCREENING 04/27/1992 DTAP/TDAP/TD VACCINES (1 - Tdap) 1993 HEPATITIS B VACCINE (1 of 3 - 19+ 3-dose series) 1993 SCREENING FOR DIABETES 05/11/2018 COVID-19 VACCINE (1 - 2023-2 5 season) 2023 INFLUENZA VACCINE (#1) 2023 DEPRESSION SCREENING 03/05/2024 PNEUMOCOCCAL VACCINE 50+ (1 of 1 - PCV) 2024 ZOSTER VACCINE (1 of 2) 2024 HIB VACCINE Aged Out No longer eligi ble based on patient's age to complete this topic HPV VACCINE Aged Out No longer eligi ble based on patient's age to complete this topic MENINGOCOCCAL (Group B) VACC INE SHARED DECISION-MAKING Aged Out No longer eligibl e based on patient's age to complete this topic MENINGOCOCCAL GROUPS A/C/Y/W VACCINE Aged Out No longer eligible b ased on patient's age to complete this topic PNEUMOCOCCAL VACCINE Aged Out No long er eligible based on patient's age to [place] [address] VANESSA,HOMAR Personal/Famil y [address] [place] [address] VANESSA,HOMAR Personal/Famil y [address] [place] [address] VANESSA,HOMAR Personal/Famil y [address] [place] [address]
== END 2024-06-05 09:52 | disposition home or self-care (01) ==
PROVIDERS: PCP Family Medicine; Visit Provider Neurological Surgery
DX: M54.2 Cervicalgia (principal)
CPT/HCPCS: 72146

== ENCOUNTER 2024-11-07 11:27 | Emergency (ER) | payer OTHER, SELFPAY ==
[2024-11-07] VITALS (10 sets, daily range): BP systolic 116–149; BP diastolic 68–95; PULSE 59–77; RESP 11–20; TEMP 36.9; O2SAT 96–99
--- NOTE | ~2024-11-07 | CT_ITS ---
EXAM: CT brain wo con - 11/07/2024 12:26 CDT History: 49 years old Male with dizzy, blurry vision COMPARISON: None available. PROCEDURE: CT of the head without contrast. Axial, sagittal and coronal reformatted planes were evaluated. Automatic exposure control was used for this study. FINDINGS: BRAIN PARENCHYMA: No acute hemorrhage. No mass effect or herniation. Connelly-white matter differentiation is maintained. Normal appearance of cortex. VENTRICLES/ EXTRA-AXIAL SPACES: No hydrocephalus or extra-axial fluid collection. EXTRACRANIAL STRUCTURES: No calvarial fracture. IMPRESSION: No evidence for acute intracranial hemorrhage or calvarial fracture. Reviewed, dictated and finalized at location N.
--- NOTE | ~2024-11-07 | XR_ITS ---
EXAM/PROCEDURE: XR chest 2V - 11/07/2024 12:50 CDT HISTORY: 49 years old Male with dizzy TECHNIQUE: Two view(s) of the chest. COMPARISON: None available. FINDINGS: LUNGS/ PLEURA: No focal consolidation. No appreciable pneumothorax or large pleural effusion. HEART/ MEDIASTINUM: Heart appears normal in size. BONES: No acute osseous abnormality. Partially visualized ACDF. OTHER: Visualized upper abdomen is unremarkable. IMPRESSION: No acute process. Reviewed, dictated and finalized at location N. IMPRESSION: No acute process.
--- NOTE | 2024-11-07 11:44 | ECG_ITS ---
Test Date: 2024-11-07 12:02:20 Measurements Intervals [place] Rate: 59 P: -11 AL: 135 QRS: 30 QRSD: 90 T: 41 QT: 399 QTc: 398 Interpretive Statements SINUS BRADYCARDIA Compared to ECG 09/30/2023 20:38:30 Sinus rhythm no longer present Electronically Signed On 11-07-2024 12:45:02 CDT by Riccardo Mackey M.D.
--- OUTSIDE RECORDS SUMMARY | 2024-11-07 11:52 | XMS_ITS | Clinical Summary ---
Author Organization [facility] [address] [facility] Address [address] [place] [address] Care Team Providers Care Regulatory Submissions Specialist Name Role Phone Unavailable Primary Care Provider [...] 4:38 AM CDT Height 188 cm (6' 2) 09/25/2018 6:17 PM CDT Body Mass Index 29.27 09/25/2018 6:17 PM CDT Plan of Treatment Health Maintenance Due Date Last Done Comments DTAP/TDAP/TD VACCINES (1 - Tdap) 1993 HEPATITIS B VACCINES (1 of 3 - 19+ 3-dose series) 04/06 COLORECTAL SCREENING 2019 Colorectal Cancer Screening 2019 FIT-DNA Q 3 years 2019 FIT/FOBT Q 1 year 2019 Flex Sig/CT Colonography Q 5 years 2019 ZOSTER VACCINE (1 of 2) 2024 INFLUENZA VACCINE (#1) 2024 Medical Devices Implanted Type Area Nursing Program Manager Device Identifier Shelf Expiration Date Model / Serial / Lot Plate Gerald 62.5mm Implanted:Qty : 1 on 09/25/2018 by Brad Harris MD at [facility] N/A: Neck [employer] SOFAMOR DANEK [id number] / / Description:ENTERED BY NATHAN Jauregui [id number] Screw 4.0x14 Mm Implanted:Qty : 4 on 09/25/2018 by Brad Harris MD at [facility] N/A: Neck [employer]AM[employer]ANE[employer] [id number] / / Description:ENTERED BY NATHAN Jauregui [id number] Screw 4.0x16 Mm Implanted:Qty : 4 on 09/25/2018 by Brad Harris MD at [facility] Screw N/A: Neck [employer]AM[employer]ANEK [id number] / / Description:ENTERED BY NATHAN Jauregui [id number] Sealant Floseal 5ml [id number] - Sna Implanted:Qty : 1 on 09/25/2018 by Brad Harris MD at [facility] Sealant N/A: Neck [employer]- [employer]ENCE 02/14/2020 [id number] / NA / [id number] Spacer Anatomic Peek Ptc [id number] Mm Implanted:Qty : 1 on 09/25/2018 by Brad Harris MD at [facility] Spacer N/A: Neck [employer]FAMOR [employer]ANEK 09/29/2021 [id number] / / [id number] Description:ENTERED BY NATHAN Jauregui [id number] REQ#[id number] Spacer Anatomic Peek Ptc [id number] Mm Implanted:Qty : 1 on 09/25/2018 by Brad Harris MD at [facility] Spacer N/A: Neck [employer]ANEK 07/20/2025 [id number] / / [id number] Description:ENTERED BY NATHAN Jauregui [id number] Spacer Anatomic Peek Ptc [id number] Mm Implanted:Qty : 1 on 09/25/2018 by Brad Harris MD at [facility] Spacer N/A: Neck [employer]FAMOR [employer]ANEK 06/14/2025 [id number] / / [id number] Description:ENTERED BY NATHAN Jauregui [id number] Putty [place] Dbm 2.5ml [id number] - [id number] Implanted:Qty : 1 on 09/25/2018 by Brad Harris MD at [facility] Tissue N/A: Neck [employer] 04/22/2021 [id number] / [id number] / NA R Index Finger Metal Right: [place] [address] [facility] Advance Directives For more information, please contact: [phone] Documents on File Type Date Recorded 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
--- OUTSIDE RECORDS SUMMARY | 2024-11-07 11:52 | XMS_ITS | Clinical Summary ---
Author Organization [facility] Address [address] [place] [address] Care Team Providers Care Retirement Specialist Name Role Phone No, Physician Primary Care Provider [phone] Allergies No known active allergies Medications acetaminophen [...] Q uit: No; Counseling Given: Not Answered [facility] [employer] Answer Date Recorded In the past 12 months has [employer], gas, oil, or water Sol[employer] threatened to shut off services in your [...] or ex-partner? No 05/20/2023 Social Connection and Isolation Panel Answer Date Recorded In a typical week, how many times do you talk on the phone with family, friends, or neighbors? More than three times a week 05/20/2023 How often do you get togethe r with friends or relatives? More than three times a week 05/20/2023 How often do you attend [facility] or orthodoxy services? 1 to 4 times per year 05/20/2023 Do you belong to any clubs o r organizations such as baptism groups, unions, fraternal or athletic groups, or [...] care, and heating? Not very hard 05/20/2023 [facility] of Occupat ional Health - Occupational Stress [...] place to sleep or slept in a halfway (including now)? No 05/20/2023 Personal Safety Answer Date Recorded Have you ever been in or are you currently in a harmful physical or emotional relationship or is someone making you feel afraid or unsafe? 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 Gender Identity Not on file Sexual Orientation [...] 2:39 PM CDT Height 188 cm (6' 2) 06/05/2023 2:39 PM CDT Body Mass Index 30.3 06/05/2023 2:39 PM CDT Plan of Treatment Health Maintenance Due Date Last Done Comments Colon Cancer Screening-Colonoscopy 1974 Depression Screening 1974 Hepatitis C Screening 1974 Prostate Cancer Screening-PSA 1974 Hepatitis B Screening 1992 Regular Well Visit/Exam 18-64 1992 Zoster Vaccine (1 of 2) 2024 Influenza Vaccine (#1) 2024 DTaP/Tdap/Td Vaccine (3 - Td or Tdap) 05/18/2033 05/19/2023, 11/17/2021 Pneumococcal vaccine <65 Aged Out No longer eligible based on patient's age to complete this topic Insurance [facility] PPO Advance Directives For more information, please contact: [phone] * Full Code (Latest Code Status on File) Date Activated Date Inactivated Comments 05/20/2023 1:44 AM 05/21/2023 6:26 PM Care Teams Retirement Specialist Relationship Specialty Start Date End Date No, Physician PCP - General 05/19/23
--- OUTSIDE RECORDS SUMMARY | 2024-11-07 11:52 | XMS_ITS | Clinical Summary ---
Author Organization [facility] [employer] Address [address] [place] [address] Care Team Providers Care Blasting Contract Miner Name Role Phone Unavailable Primary Care Provider Unavailabl e Source Comments [facility],non-owned Affiliates and Associated Physician Practices is amultiple site organization consisting of ambulatory clinics and hospital sitesin [place], [place], [place] and [place]. This disclosure is being madepursuant to the Care Everywhere program and may not contain all information available regarding this patient. Last updated 17.[facility] [employer] Allergies No known active allergies Medications * Be aware that medications may not be up to date on this document. Alwaysverify current medications with the patient. 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 Gender Identity Not on file Sexual Orientation Not on file Last Filed Vital Signs Vital Sign Reading Time Taken Comments Blood Pressure 112/80 05/11/2018 10:03 AM SUPERVISOR CORDUROY CUTTING Pulse 62 05/11/2018 10:03 AM SUPERVISOR CORDUROY CUTTING Temperature 37.1 C (98.7 F) 05/11/2018 10:03 AM SUPERVISOR CORDUROY CUTTING Respiratory Rate 16 05/11/2018 10:03 AM SUPERVISOR CORDUROY CUTTING Oxygen Saturation 95% 05/11/2018 10:03 AM SUPERVISOR CORDUROY CUTTING Inhaled Oxygen Concentration - - Weight 107 kg (236 lb) 05/11/2018 10:03 AM SUPERVISOR CORDUROY CUTTING Height 190.5 cm (6' 3) 05/11/2018 10:03 AM SUPERVISOR CORDUROY CUTTING Body Mass Index 29.5 05/11/2018 10:03 AM SUPERVISOR CORDUROY CUTTING Plan of Treatment Health Maintenance Due Date Last Done Comments PEYTON (AGES 45-75) - COL ON CA SCREENING [...] VACCINE (1 - 2023-2 5 season) 2023 DEPRESSION SCREENING 03/05/2024 PNEUMOCOCCAL VACCINE 50+ (1 of 1 - PCV) 2024 ZOSTER VACCINE (1 of 2) 2024 INFLUENZA VACCINE (#1) 2024 HIB VACCINE Aged Out No longer [...] patient's age to complete this topic Insurance [employer] [id number] [facility] Address: [facility] [id number] [phone] * Guarantor: HOMAR MENDEZ Account Type Relation to Patient Date of Phone Billing Address Personal/Family [phone] [place] [address] [employer] SELF PAY NO INSURANCE Member Subscriber Plan / Payer (Ef fective for All Dates) Name:Homar Mendez E Member ID:Not on file Relation to Subscriber:Not on file Name:HOMAR MENDEZ Subscriber ID:Not on file Address: [address] [place] [phone] Payer ID:Not on file Group ID:Not on file Type:Self Pay Address: [place], [place] * Guarantor: HOMAR MENDEZ Account Type Relation to Patient Date of Phone Billing Address Personal/Family [address] [place] [phone] [facility] NO INSURANCE Member Subscriber Plan / Payer (Ef fective for All Dates) Name:Homar Mendez Member ID:Not on file Relation to Subscriber:Not on file Name:HOMAR MENDEZ Subscriber ID:Not on file Address: [address] [place] [phone] Payer ID:Not on file Group ID:Not on file Type:Self Pay Address: [place], [place] * Guarantor: HOMAR MENDEZ Account Type Relation to Patient Date of Phone Billing Address Personal/Family [address] [place] [phone] [employer] SELF PAY NO INSURANCE Member Subscriber Plan / Payer (Ef fective for All Dates) Name:Homar Mendez Member ID:Not on file Relation to Subscriber:Not on file Name:HOMAR MENDEZ Subscriber ID:Not on file Address: [address] [place] [phone] Payer ID:Not on file Group ID:Not on file Type:Self Pay Address: [place], [place]
[2024-11-07 12:11] LABS: Hematocrit 48.0 % (42.0-52.0); Hemoglobin 15.7 g/dL (14.0-18.0); Immature Granulocyte Percent A 0.2 % (0-0.5); Lymphocytes Absolute Auto 1.50 K/mm3 (0.9-3.2); Mean Corpuscular HGB Conc 32.7 g/dl (32-36); Mean Corpuscular Hemoglobin 29.2 pg (26-34); Mean Corpuscular Volume 89.2 fl (80-100); Nucleated Red Blood Cells Absolute Auto 0.000 K/mm3 (0.0-0.012); Nucleated Red Blood Cells Perc 0.0 % (0.0-0.2); Platelet Count Result 207 k/mm3 (150-375); Red Blood Count 5.38 M/mm3 (4.6-6.20); White Blood Count 4.4 K/mm3 (4.5-10.0)
[2024-11-07 12:23] LABS: Alanine Aminotransferase 34 U/L (6-50); Albumin Level 5.0 g/dL (3.5-5.1); Alkaline Phosphatase 64 U/L (38-126); Anion Gap 10 mmol/L (4-12); Aspartate Amino Transferase 32 U/L (17-59); Bilirubin,Total 2.6 mg/dL (0.2-1.3); Blood Urea Nitrogen 10 mg/dL (9-20); Calcium 9.9 mg/dL (8.4-10.2); Carbon Dioxide 25 mmol/L (22-30); Chloride 103 mmol/L (98-107); Estimated CRCL calculation 93 ml/min; Estimated Glomerular Filt Rate > 60; Glucose 104 mg/dL (65-110); Potassium 4.2 mmol/L (3.4-5.0); Sodium 138 mmol/L (137-145); Total Protein 8.5 g/dL (6.3-8.2)
[2024-11-07] MEDS: MECLIZINE HCL 25 MG TABLET PO (12:29)
[2024-11-07] MEDS: SODIUM CHLORIDE 0.9% IV 1,000 ML 999 ML IV CONT (12:30)
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
== END 2024-11-07 14:55 | disposition home or self-care (01) ==
PROVIDERS: Emergency Medicine; PCP Family Medicine
DX: R42 Dizziness and giddiness (principal); J32.9 Chronic sinusitis, unspecified; M19.012 Primary osteoarthritis, left shoulder; Z98.1 Arthrodesis status; F17.220 Nicotine dependence, chewing tobacco, uncomplicated; R00.1 Bradycardia, unspecified
CPT/HCPCS: 36415; 70450; 71046; 80053; 85025; 93005; 96360; 99284; A9270; J7030

== ENCOUNTER 2024-11-12 09:04 | Outpatient (CLI) | payer OTHER, SELFPAY ==
--- OUTSIDE RECORDS SUMMARY | 2024-11-12 09:44 | XMS_ITS | Clinical Summary ---
Author Organization [facility] Address [address] [place] [address] Care Team Providers Care Official Court Interpreter Name Role Phone No, Physician Primary Care Provider [phone] Allergies No known active allergies Medications acetaminophen (TYLENOL) 325 mg tabletIndicatio ns:Pain Take 2 tablets (650 mg total) by mouth every 6 (six) hours as needed for pain 30 tablet 4 Active Additional Information Patient not taking.Reported on 06/05/2023 bacitracin 500 unit/gram ointmentIndicat ions:scalp laceration Apply topically 2 (two) times a day 15 g Active Additional Information Patient not taking.Reported on [...] Q uit: No; Counseling Given: Not Answered [facility] [employer]ities Answer Date Recorded In the past 12 months has [employer], gas, oil, or water [employer] threatened to shut off services in your [...] week 05/20/2023 How often do you attend [facility] or latter day services? 1 to 4 times per year 05/20/2023 Do you belong to any clubs o r organizations such as latter-day groups, unions, fraternal or athletic groups, or [...] care, and heating? Not very hard 05/20/2023 [facility] [place] of Occupat ional Health - Occupational Stress [...] place to sleep or slept in a retirement (including now)? No 05/20/2023 Personal Safety Answer Date Recorded Have you ever been in or are you currently in a harmful physical or emotional relationship or is someone making you feel afraid or unsafe? 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
--- OUTSIDE RECORDS SUMMARY | 2024-11-12 09:44 | XMS_ITS | Clinical Summary ---
Author Organization [facility] Address [address] [place] [address] Care Team Providers Care Merchandise Collector Name Role Phone Unavailable Primary Care Provider [...] (#1) 2024 Medical Devices Implanted Type Area Seismology Teacher Device Identifier Shelf Expiration Date Model / Serial / Lot Plate Tangerine 62.5mm Implanted:Qty : 1 on 09/25/2018 by Brad Harris MD at [facility] N/A: Neck [employer] [id number] / / Description:ENTERED BY NATHAN Jauregui [id number] Screw 4.0x14 Mm Implanted:Qty : 4 on 09/25/2018 by Brad Harris MD at [facility] N/A: Neck [employer]K [id number] / / Description:ENTERED BY NATHAN Jauregui [id number] Screw 4.0x16 Mm Implanted:Qty : 4 on 09/25/2018 by Brad Harris MD at [facility] Screw N/A: Neck [employer] [id number] / / Description:ENTERED BY NATHAN Jauregui [id number] Sealant Floseal 5ml [id number] - Sna Implanted:Qty : 1 on 09/25/2018 by Brad Harris MD at [facility] Sealant N/A: Neck [employer]EIR[employer]- BIOSCIENCE 02/14/2020 [id number] / NA / [id number] Spacer Anatomic Peek Ptc [id number] Mm Implanted:Qty : 1 on 09/25/2018 by Brad Harris MD at [facility] Spacer N/A: Neck [employer] 09/29/2021 [id number] / / [id number] Description:ENTERED BY NATHAN Jauregui [id number] REQ#[id number] Spacer Anatomic Peek Ptc [id number] Mm Implanted:Qty : 1 on 09/25/2018 by Brad Harris MD at [facility] Spacer N/A: Neck [employer]K 07/20/2025 [id number] / / [id number] Description:ENTERED BY NATHAN Jauregui [id number] Spacer Anatomic Peek Ptc [id number] Mm Implanted:Qty : 1 on 09/25/2018 by Brad Harris MD at [facility] Spacer N/A: Neck [employer]K 06/14/2025 [id number] / / 20FE Description:ENTERED BY NATHAN Jauregui [id number] Putty [place] Dbm 2.5ml [id number] - [id number] Implanted:Qty : 1 on 09/25/2018 by Brad Harris MD at [facility] Tissue N/A: Neck [employer] 04/22/2021 [id number] / [id number] / NA R Index Finger Metal Right: [place] [id number] [facility] Advance Directives For more information, please contact: [phone] Documents on File Type Date Recorded Patient Ekg/Ecg Technician Expl 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
--- OUTSIDE RECORDS SUMMARY | 2024-11-12 09:44 | XMS_ITS | Clinical Summary ---
Author Organization [facility] [employer] Address [address] [place] [address] Care Team Providers Care Supervisor Audit Clerks Name Role Phone Unavailable Primary Care Provider Unavailabl e Source Comments [facility],non-owned Affiliates and Associated Physician Practices is amultiple site organization consisting of ambulatory clinics and hospital sitesin [place], [place], [place] and [place]. This disclosure is being madepursuant to the Care Everywhere program and may not contain all information available regarding this patient. 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 Gender Identity Not on file Sexual Orientation Not on file Last Filed Vital Signs Vital Sign Reading Time Taken Comments Blood Pressure 112/80 05/11/2018 10:03 AM SCALPER OPERATOR Pulse 62 05/11/2018 10:03 AM SCALPER OPERATOR Temperature 37.1 C (98.7 F) 05/11/2018 10:03 AM SCALPER OPERATOR Respiratory Rate 16 05/11/2018 10:03 AM SCALPER OPERATOR Oxygen Saturation 95% 05/11/2018 10:03 AM SCALPER OPERATOR Inhaled Oxygen Concentration - - Weight 107 kg (236 lb) 05/11/2018 10:03 AM SCALPER OPERATOR Height 190.5 cm (6' 3) 05/11/2018 10:03 AM SCALPER OPERATOR Body Mass Index 29.5 05/11/2018 10:03 AM SCALPER OPERATOR Plan of Treatment Health Maintenance Due Date [...] 3-dose series) 1993 SCREENING FOR DIABETES 05/11/2018 DEPRESSION SCREENING 03/05/2024 PNEUMOCOCCAL VACCINE 50+ (1 of 1 - PCV) 2024 ZOSTER VACCINE (1 of 2) 2024 COVID-19 VACCINE (1 - 2023-2 5 season) 2024 INFLUENZA VACCINE (#1) 2024 HIB VACCINE [...] to complete this topic Insurance INDIGO Bazan [id number] LEVAR * Guarantor: HOMAR MENDEZ Account Type Relation to Patient Date of Phone Billing Address Personal/Family [phone] [place] [id number] LEVAR SELF PAY NO INSURANCE Member Subscriber Plan / Payer (Ef fective for All Dates) Name:Homar Mendez E Member ID:Not on file Relation to Subscriber:Not on file Name:HOMAR MENDEZ Subscriber ID:Not on file Address: [address] [place] [phone] Payer ID:Not on file Group ID:Not on file Type:Self Pay Address: [place], [place] * Guarantor: HOMAR MENDEZ Account Type Relation to Patient Date of Phone Billing Address Personal/Family [address] [place] [phone] [facility] Member Subscriber Plan / Payer (Ef fective for All Dates) Name:Homar Mendez Member ID:Not on file Relation to Subscriber:Not on file Name:HOMAR MENDEZ Subscriber ID:Not on file Address: [address] [place] [phone] Payer ID:Not on file Group ID:Not on file Type:Self Pay Address: [place], [place] * Guarantor: HOMAR MENDEZ Account Type Relation to Patient Date of Phone Billing Address Personal/Family [address] [place] [phone] [employer] SELF PAY NO INSURANCE Member Subscriber Plan / Payer (Ef fective for All Dates) Name:Homar Mendez Member ID:Not on file Relation to Subscriber:Not on file Name:HOMAR MENDEZ Subscriber ID:Not on file Address: [address] [place] [phone] Payer ID:Not on file Group ID:Not on file Type:Self Pay Address: [place], [place]
[2024-11-12 12:11] LABS: Hematocrit 44.2 % (40.0-54.0); Hemoglobin 14.4 g/dL (14.0-18.0); Immature Granulocyte Percent A 0.4 % (0.0-0.0); Lymphocytes Absolute Auto 1.57 K/mm3 (1.10-4.50); Mean Corpuscular HGB Conc 32.6 g/dL (32-36); Mean Corpuscular Hemoglobin 29.5 pg (27.0-31.0); Mean Corpuscular Volume 90.6 fL (78.0-102.0); Nucleated Red Blood Cells Absolute Auto 0.00 K/mm3 (0.00-0.00); Nucleated Red Blood Cells Perc 0.0 % (0-0.0); Platelet Count Result 196 K/mm3 (150-420); Red Blood Count 4.88 M/mm3 (4.70-6.10); White Blood Count 5.0 K/mm3 (4.8-10.8)
[2024-11-12 12:55] LABS: Alanine Aminotransferase 36 U/L (6-50); Albumin Level 4.6 g/dL (3.5-5.1); Alkaline Phosphatase 55 U/L (38-126); Anion Gap 10 mmol/L (4-12); Aspartate Amino Transferase 29 U/L (17-59); Bilirubin,Total 1.8 mg/dL (0.2-1.3); Blood Urea Nitrogen 13 mg/dL (9-20); Calcium 9.9 mg/dL (8.4-10.2); Carbon Dioxide 29 mmol/L (22-30); Chloride 104 mmol/L (98-107); Cholesterol 174 mg/dL (0-200); Estimated Glomerular Filt Rate > 60; Glucose 102 mg/dL (65-110); HDL Direct 39 mg/dL; Osmolality Calculated 296 mOsm/kg (285-295); Potassium 4.8 mmol/L (3.4-5.0); Sodium 143 mmol/L (137-145); Total Protein 6.9 g/dL (6.3-8.2); Triglycerides 75 mg/dL (<150)
[2024-11-12 13:25] LABS: Thyroid Stimulating Hormone Reflex 2.090 uIU/mL (0.465-4.68)
[2024-11-18 12:08] LABS: B microti IgG <1:10 (Neg:<1:10); E. chaffeensis IgG Negative (Neg:<1:64)
== END 2024-11-12 09:05 | disposition home or self-care (01) ==
PROVIDERS: PCP Family Medicine; Visit Provider Family Medicine
DX: Z00.00 Encounter for general adult medical examination without abnormal findings (principal); R53.83 Other fatigue; E03.9 Hypothyroidism, unspecified
CPT/HCPCS: 36415; 80053; 80061; 84443; 85025; 86618; 86666

== ENCOUNTER 2024-11-27 13:18 | Outpatient (CLI) | payer OTHER, SELFPAY ==
--- NOTE | ~2024-11-27 | CT_ITS ---
EXAMINATION: CT sinus wo con COMPARISON: None HISTORY: J32.9 - Chronic sinusitis, unspecified TECHNIQUE: Axial images were obtained without IV contrast. Sagittal, coronal reconstruction images were obtained from the axial views. CT scan performed using dose optimization techniques including the following automated exposure control; adjustment of mA and/or kV; use of iterative reconstruction technique. Automatic exposure control was used to reduce radiation dose. Permanent radiation dose record is archived to PACS. FINDINGS: The visualized brain parenchyma, optic globes the soft tissues are unremarkable Frontal sinuses are unremarkable. Moderate mucosal thickening within the ethmoidal air cells. The ostiomeatal complexes are patent. Minimal to moderate mucosal thickening within the maxillary sinuses most marked on the right side. Nasal septum deviated to the left. Mild thickening of the turbinates and mild narrowing of the nasal cavities bilaterally. Minimal mucosal thickening in the sphenoid sinuses. No osseous destruction or wall thickening is identified. IMPRESSION: Sinusitis detailed above Reviewed, dictated and finalized at location P. IMPRESSION: Sinusitis detailed above
--- NOTE | ~2024-11-27 | MR_ITS ---
EXAMINATION: MR brain/brain stem wo con DATE: 11/27/2024 16:34 INDICATION: Headache, unspecified. TECHNIQUE: Magnetic resonance imaging (MRI) of the brain and brainstem was performed without intravenous contrast. COMPARISON: Head CT 11/07/2024, cervical spine MRI 12/13/2023 FINDINGS: There are scattered areas of nonspecific increased T2-weighted signal intensity in the cerebral white matter. There is no intracranial hemorrhage, acute infarction, or abnormal intracranial mass lesion. The ventricles are normal in size. There is mild mucosal thickening in the paranasal sinuses. The orbits are normal. The mastoid air cells are normal. There is a left frontal lateral scalp lipoma. IMPRESSION: 1. Moderate nonspecific cerebral white matter disease, which likely represents chronic small vessel ischemic disease. Reviewed, dictated and finalized at location E.
--- OUTSIDE RECORDS SUMMARY | 2024-11-27 16:07 | XMS_ITS | Clinical Summary ---
Author Organization [facility] Address [address] [place] [address] Care Team Providers Care Production Honing Machine Operator Name Role Phone Unavailable Primary Care Provider [...] (#1) 2024 Medical Devices Implanted Type Area Power Engineer Device Identifier Shelf Expiration Date Model / Serial / Lot Plate [place] 62.5mm Implanted:Qty : 1 on 09/25/2018 by Brad Harris MD at [facility] N/A: Neck [employer] [id number] / / Description:ENTERED BY NATHAN Jauregui [id number] Screw 4.0x14 Mm Implanted:Qty : 4 on 09/25/2018 by Brad Harris MD at [facility] N/A: Neck [employer] [id number] / / Description:ENTERED BY NATHAN Jauregui [id number] Screw 4.0x16 Mm Implanted:Qty : 4 on 09/25/2018 by Brad Harris MD at [facility] Screw N/A: Neck [employer] [id number] / / Description:ENTERED BY NATHAN Jauregui [id number] Sealant Floseal 5ml [id number] - Sna Implanted:Qty : 1 on 09/25/2018 by Brad Harris MD at [facility] Sealant N/A: Neck [employer]- BIOS[employer]ENCE 02/14/2020 [id number] / NA / [id number] Spacer Anatomic Peek Ptc [id number] Mm Implanted:Qty : 1 on 09/25/2018 by Brad Harris MD at [facility] Spacer N/A: Neck [employer] 09/29/2021 [id number] / / [id number] Description:ENTERED BY NATHAN Jauregui [id number] REQ#[id number] Spacer Anatomic Peek Ptc [id number] Mm Implanted:Qty : 1 on 09/25/2018 by Brad Harris MD at [facility] Spacer N/A: Neck [employer] 07/20/2025 [id number] / / [id number] Description:ENTERED BY NATHAN Jauregui [id number] Spacer Anatomic Peek Ptc [id number] Mm Implanted:Qty : 1 on 09/25/2018 by Brad Harris MD at [facility] Spacer N/A: Neck [employer] 06/14/2025 [id number] / / 20FE Description:ENTERED BY NATHAN Jauregui [id number] Putty [place] Dbm 2.5ml [id number] - [id number] Implanted:Qty : 1 on 09/25/2018 by Brad Harris MD at [facility] Tissue N/A: Neck [employer] 04/22/2021 [id number] / [id number] / NA R Index Finger Metal Right: [place] [address] [facility] Advance Directives For more information, please contact: [phone] Documents on File Type Date Recorded Patient Communications Marketing Intern Expl 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
--- OUTSIDE RECORDS SUMMARY | 2024-11-27 16:07 | XMS_ITS | Clinical Summary ---
Author Organization [facility] [employer] Address [address] [place] [address] Care Team Providers Care Digital Media Intern Name Role Phone Unavailable Primary Care Provider Unavailabl e Source Comments [facility],non-owned Affiliates and Associated Physician Practices is amultiple site organization consisting of ambulatory clinics and hospital sitesin [place], [place], [place] and [place]. This disclosure is being madepursuant to the Care Everywhere program and may not contain all information available regarding this patient. 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 Gender Identity Not on file Sexual Orientation Not on file Last Filed Vital Signs Vital Sign Reading Time Taken Comments Blood Pressure 112/80 05/11/2018 10:03 AM ACLS NURSE Pulse 62 05/11/2018 10:03 AM ACLS NURSE Temperature 37.1 C (98.7 F) 05/11/2018 10:03 AM ACLS NURSE Respiratory Rate 16 05/11/2018 10:03 AM ACLS NURSE Oxygen Saturation 95% 05/11/2018 10:03 AM ACLS NURSE Inhaled Oxygen Concentration - - Weight 107 kg (236 lb) 05/11/2018 10:03 AM ACLS NURSE Height 190.5 cm (6' 3) 05/11/2018 10:03 AM ACLS NURSE Body Mass Index 29.5 05/11/2018 10:03 AM ACLS NURSE Plan of Treatment Health Maintenance Due Date [...] to complete this topic Insurance INDIGO Bazan [id number] [address] [facility] Address: [facility] [address] [place] [id number] * Guarantor: HOMAR MENDEZ Account Type Relation to Patient Date of Phone Billing Address Personal/Family [address] [place] [phone] LEVAR SELF PAY NO INSURANCE Member Subscriber Plan / Payer (Ef fective for All Dates) Name:Homar Mendez E Member ID:Not on file Relation to Subscriber:Not on file Name:HOMAR MENDEZ Subscriber ID:Not on file Address: [address] [place] [phone] Payer ID:Not on file Group ID:Not on file Type:Self Pay Address: [place], [place] * Guarantor: HOMAR MENDEZ Account Type Relation to Patient Date of Phone Billing Address Personal/Family [address] [place] [phone] [facility] S[facility] NO INSURANCE Member Subscriber Plan / Payer (Ef fective for All Dates) Name:Homar Mendez Member ID:Not on file Relation to Subscriber:Not on file Name:HOMAR MENDEZ Subscriber ID:Not on file Address: [address] [place] [phone] Payer ID:Not on file Group ID:Not on file Type:Self Pay Address: [place], [place] * Guarantor: HOMAR MENDEZ Account Type Relation to Patient Date of Phone Billing Address Personal/Family [address] [place] [phone] [employer] SELF PAY NO INSURANCE Member Subscriber Plan / Payer (Ef fective for All Dates) Name:Homar Mendez Member ID:Not on file Relation to Subscriber:Not on file Name:HOMAR MENDEZ Subscriber ID:Not on file Address: [address] [place] [phone] Payer ID:Not on file Group ID:Not on file Type:Self Pay Address: [place], [place]
--- OUTSIDE RECORDS SUMMARY | 2024-11-27 16:07 | XMS_ITS | Clinical Summary ---
Author Organization [facility] Address [address] [place] [address] Care Team Providers Care High Rigger Name Role Phone No, Physician Primary Care Provider [phone] Allergies No known active allergies Medications acetaminophen [...] Q uit: No; Counseling Given: Not Answered [facility] [employer] Answer Date Recorded In the past 12 months has [employer], gas, oil, or water [email or web address] threatened to shut off services in your [...] 05/20/2023 How often do you attend [facility] or nondenominational services? 1 to 4 times per year 05/20/2023 Do you belong to any clubs o r organizations such as restorationism groups, unions, fraternal or athletic groups, or [...] care, and heating? Not very hard 05/20/2023 [facility] [place] of Occupat ional Health - Occupational Stress [...] place to sleep or slept in a senior care (including now)? No 05/20/2023 Personal Safety Answer Date Recorded Have you ever been in or are you currently in a harmful physical or emotional relationship or is someone making you feel afraid or unsafe? 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
== END 2024-11-27 13:19 | disposition home or self-care (01) ==
PROVIDERS: PCP Family Medicine; Visit Provider Family Medicine
DX: R51.9 Headache, unspecified (principal); G89.29 Other chronic pain; J32.9 Chronic sinusitis, unspecified; R90.82 White matter disease, unspecified
CPT/HCPCS: 70486; 70551